=== PATIENT | female | born 1970 | race Caucasian/White ===

== ENCOUNTER 2016-06-19 18:59 | Emergency (ER) | payer BC ==
[~2016-06-19] VITALS: Ht 165.1 cm; Wt 109.1 kg
[~2016-06-19 18:59] MED LIST: BIOTCAP2 PO; ERGO1CAP35 PO; LEVO88TA3 PO; MERCAPTOPURINE PO; PRLSR20 PO; VEDO1INJ INJ; ZNTT/150 PO
[2016-06-19 19:41] VITALS: TEMP 36.8; Ht 165.1 cm; Wt 109.1 kg
[2016-06-19] MEDS ORDERED: SODIUM CHLORIDE 0.9% 1000ML 1,000 ML IV STA (20:14)
--- NOTE | 2016-06-19 20:31 | EMERGENCY ROOM VISIT NOTE ---
History Report prepared by Isabella: Stevie Mcdonald Under the Supervision of: Dr. Oskar Ye M.D. First contact with patient: 20:02 Chief Complaint: OTHER COMPLAINT Stated Complaint: LIGHT HEADED SINCE 730 THIS MORNING History of Present Illness The patient is a 46 year old female who presents to the Emergency Room with complaints of persistent lightheadedness beginning thirteen and a half hours prior to arrival. She states she woke up this morning, and when she got out of bed that she began walking sideways. The patient notes she sat back down for a few minutes but it did not subside. She states her symptoms are worse with movement. The patient notes she was seen by [facility], who referred the patient to the ED because her right eye was not "circular". She states she was diagnosed with iritis in her left eye a year ago, in which, she just finished eye drops a week and a half ago. She notes she has experienced a relapse of her ulcerative colitis that began 2-3 weeks ago. The patient also complains of mild pressure in her jaw, but she states she has not seen a dentist in five years and her childhood fillings are falling out. She notes she had vertigo a few years ago, but today's lightheadedness is not as severe. The patient states she has experienced increased frequency urinating due to coming out of remission for her ulcerative colitis. She notes she has experienced minimal blood in her stool that is related to internal hemorrhoids from ulcerative colitis. 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 Review of Systems See HPI for pertinent positives & negatives. A total of 10 systems reviewed and were otherwise negative. Past Medical & Surgical Medical Problems: (1) Hypothyroidism (2) Irritable bowel (3) Ulcerative colitis (4) Uterine cancer Surgical Problems: (1) H/O: hysterectomy Family History Cancer Diabetes mellitus FHx: lung disease Hypertension Social History Smoking Status: Never Smoker Marital Status: Housing Status: lives with family Current/Historical Medications Scheduled Biotin (Biotin 5000), 1 CAP PO DAILY Ergocalciferol (Vitamin D Cap), 50,000 INTER.UNIT PO WK Levothyroxine Sodium (Levothyroxine Sodium), 1 TAB PO DAILY Omeprazole (Prilosec), 20 MG PO BID Ranitidine (Zantac), 1 TAB PO BID Vedolizumab (Entyvio), 1 DOSE INJ [id number] [Mecatopurine], 100 MG PO DAILY Scheduled PRN Meclizine HCl (Meclizine HCl), 1 TAB PO Q6H PRN for Dizziness or Vertigo Allergies Coded Allergies: Adalimumab (Verified Allergy, Severe, LUPUS, 07/12/15) Clavulanic Acid (Verified Allergy, Severe, TONGUE SWELLS, 03/26/09) Penicillins (Verified Allergy, Severe, TONGUE SWELLS, 03/26/09) Prednisone (Verified Allergy, Severe, HAIR FALLS OUT, 07/12/15) Uncoded Allergies: BETALACTAMASEIN (Allergy, Severe, TONGUE SWELLS, 03/26/09) Physical Exam Vital Signs Date Time Temp Pulse Resp B/P Pulse Ox O2 Delivery O2 Flow Rate FiO2 06/19/16 23:15 54 18 130/75 100 Room Air 06/19/16 20:55 67 06/19/16 20:45 58 18 129/82 96 06/19/16 19:41 36.8 74 18 147/94 98 Room Air Physical Exam GENERAL: Patient is in no acute distress. HEENT: Right pupil is slightly irregular in shape compared to the left but reacts normally. No acute trauma, normocephalic atraumatic, mucous membranes moist, no nasal congestion, no scleral icterus. NECK: No stridor, no adenopathy, no meningismus, trachea is midline. LUNGS: Clear to auscultation bilaterally, no wheeze, no rhonchi, breath sounds equal. HEART: Without murmurs gallops or rubs, regular rate and rhythm. ABDOMEN: Soft, nontender, bowel sounds positive, no hernias, no peritonitis. EXTREMITIES: No cyanosis or edema, full range of motion of all the joints without pain or difficulty, no signs for acute trauma. NEUROLOGIC: Oriented x 3, no acute motor or sensory deficits, no focal weakness. No speech slur or facial droop. No cerebellar dysfunction or pronator drift. SKIN: No rash, no jaundice, no diaphoresis. Medical Decision & Procedures ER Provider Diagnostic Interpretation: MRA and MRI results and stated below per my interpretation and radiologist interpretation. Other radiology results and stated below per my review and radiologist interpretation: MR ANGIOGRAM OF THE BRAIN CLINICAL HISTORY: Lightheadedness. COMPARISON STUDY: MRI of the brain performed concurrently on 06/19/2016. TECHNIQUE: 3-D [id number] MR angiography of the intracranial circulation is performed. 3-D tumble views are created and assessed. IV contrast was not administered for this examination. FINDINGS: The [place] is developmentally complete. The internal carotid arteries are widely patent bilaterally, as are the anterior and middle cerebral arteries. The vertebrobasilar system and posterior cerebral arteries are widely patent. The right vertebral artery is dominant. There is no aneurysm, high-grade stenosis, or focal vessel cutoff seen throughout the intracranial circulation. The brain parenchyma is normal as visualized. IMPRESSION: Unremarkable MR angiogram of the brain. Electronically signed by: Oskar Edward M.D. 06/19/2016 11:00 PM MRI OF THE BRAIN COMBO CLINICAL HISTORY: Lightheadedness. Gait imbalance. COMPARISON STUDY: No priors. TECHNIQUE: MRI of the brain was performed utilizing various T1 and T2-weighted sequences in the axial, sagittal, and coronal planes. Contrast-enhanced sequences were acquired following the administration of 10 cc of Gadavist. FINDINGS: Brain parenchyma: The brain parenchyma is normal in appearance. There is no hemorrhage or mass effect. There is no restricted diffusion to suggest acute ischemia. No enhancing mass lesion is identified on the postcontrast images. [place]-white matter differentiation is preserved. No extra-axial fluid collection is seen. The cerebellar tonsils are normal in configuration. Ventricles, sulci, and cisterns: Normal in configuration. Pituitary and sella: Unremarkable. Intracranial vasculature: Normal flow voids are maintained at the skull base. Orbits: The bony orbits are grossly intact. Orbital contents are normal in appearance. Sinuses and mastoids: Clear. Calvarium: Unremarkable. Cervical cord: Partially visualized cervical spinal cord is normal in morphology and signal intensity. IMPRESSION: No acute intracranial abnormality. Electronically signed by: Oskar Edward M.D. 06/19/2016 10:57 PM Laboratory Results 06/19/16 20:50 Red Blood Count 4.22, Mean Corpuscular Volume 88.2, Mean Corpuscular Hemoglobin 29.6, Mean Corpuscular Hemoglobin Concent 33.6, Mean Platelet Volume 9.0, Neutrophils (%) (Auto) 46.0, Lymphocytes (%) (Auto) 41.4, Monocytes (%) (Auto) 7.4, Eosinophils (%) (Auto) 4.7, Basophils (%) (Auto) 0.3, Neutrophils # (Auto) 2.86, Lymphocytes # (Auto) 2.57, Monocytes # (Auto) 0.46, Eosinophils # (Auto) 0.29, Basophils # (Auto) 0.02 06/19/16 20:50 Test 06/19/16 20:50 White Blood Count 6.21 K/uL (4.8-10.8) Red Blood Count 4.22 M/uL (4.2-5.4) Hemoglobin 12.5 g/dL (12.0-16.0) Hematocrit 37.2 % (37-47) Mean Corpuscular Volume 88.2 fL (80-100) Mean Corpuscular Hemoglobin 29.6 pg (25-34) Mean Corpuscular Hemoglobin Concent 33.6 g/dl (32-36) Platelet Count 291 K/uL (130-400) Mean Platelet Volume 9.0 fL (7.4-10.4) Neutrophils (%) (Auto) 46.0 % Lymphocytes (%) (Auto) 41.4 % Monocytes (%) (Auto) 7.4 % Eosinophils (%) (Auto) 4.7 % Basophils (%) (Auto) 0.3 % Neutrophils # (Auto) 2.86 K/uL (1.4-6.5) Lymphocytes # (Auto) 2.57 K/uL (1.2-3.4) Monocytes # (Auto) 0.46 K/uL (0.11-0.59) Eosinophils # (Auto) 0.29 K/uL (0-0.5) Basophils # (Auto) 0.02 K/uL (0-0.2) RDW Standard Deviation 43.8 fL (36.4-46.3) RDW Coefficient of Variation 13.6 % (11.5-14.5) Immature Granulocyte % (Auto) 0.2 % Immature Granulocyte # (Auto) 0.01 K/uL (0.00-0.02) Urine Color YELLOW Urine Appearance CLEAR (CLEAR) Urine pH 6.5 (4.5-7.5) Urine Specific [place]aid 1.024 (1.000-1.030) Urine Protein NEG (NEG) Urine Glucose (UA) NEG (NEG) Urine Ketones NEG (NEG) Urine Occult Blood NEG (NEG) Urine Nitrite NEG (NEG) Urine Bilirubin NEG (NEG) Urine Urobilinogen NEG (NEG) Urine Leukocyte Esterase TRACE (NEG) Urine WBC (Auto) 1-5 /hpf (0-5) Urine RBC (Auto) 0-4 /hpf (0-4) Urine Hyaline Casts (Auto) 1-5 /lpf (0-5) Urine Epithelial Cells (Auto) 10-20 /lpf (0-5) Urine Bacteria (Auto) NEG (NEG) Anion Gap 9.0 mmol/L (3-11) Est Creatinine Clear Calc Drug Dose 111.7 ml/min Estimated GFR () 105.5 Estimated GFR (Non- 91.0 BUN/Creatinine Ratio 20.9 (10-20) Calcium Level 8.8 mg/dl (8.5-10.1) Total Bilirubin 0.3 mg/dl (0.2-1) Aspartate Amino Transf (AST/SGOT) 17 U/L (15-37) Alanine Aminotransferase (ALT/SGPT) 20 U/L (12-78) Alkaline Phosphatase 107 U/L (45-117) Total Protein 7.1 gm/dl (6.4-8.2) Albumin 3.8 gm/dl (3.4-5.0) Globulin 3.3 gm/dl (2.5-4.0) Albumin/Globulin Ratio 1.2 (0.9-2) Thyroid Stimulating Hormone (TSH) 1.350 uIu/ml (0.300-4.500) Free Thyroxine 1.36 ng/dl (0.80-1.60) Laboratory results reviewed by me. Medications Administered Medications (Trade) Dose Ordered Sig/Sharonda Route Start Time Stop Time Status Last Admin Dose Admin Sodium Chloride (Nss 1000ml) 1,000 ml @ 999 mls/hr Q1H1M STAT IV 06/19/16 20:14 06/19/16 21:14 DC 06/19/16 21:05 999 MLS/HR Loperamide HCl (Imodium Cap) 4 mg NOW STAT PO 06/19/16 20:50 06/19/16 20:52 DC 06/19/16 21:04 4 MG ECG Indication: other (lightheadedness) Rate (beats per minute): 58 Rhythm: sinus bradycardia Findings: no acute ischemic change, no ectopy ED Course 2006: The patient was evaluated in room A12B. A complete history and physical exam was performed. 2013: Ordered Sodium Chloride 1,000 ml @ 999 mls/hr IV. 2049: Ordered Imodium Cap 4 mg PO. 2299: Ordered Gadavist 10 mmol IV. 2317: Reevaluated the patient. Discussed results and discharge instructions: She verbalized understanding and agreement. The patient is ready for discharge. 2344: Ordered Meclizine HCl 1 homepack PO. Medical Decision The differential diagnoses include but are not limited to: vertigo, stroke, aneurysm, intracranial mass, electrolyte imbalance, anemia, UTI, medication reaction, thyroid disorder. There is no leukocytosis or concerning anemia. No significant electrolyte abnormality, kidney failure or hepatitis. The patient appears to be in a euthyroid state. EKG shows a sinus rhythm, no acute ischemia. Brain MRI does not show mass or strokelike lesion. Brain MRA does not show evidence for aneurysm. Urinalysis does not show infection. On exam, there were no focal neurologic deficits. The patient presents for the possibility of mass or aneurysm. This concern was brought forward at urgent care. Workup here suggests no emergent findings. The patient does, I suspect, likely have vertigo. She was reassured. She is being discharged home. During her ER stay, she was given IV saline, she received oral Imodium for diarrhea. She was given a meclizine tablet home pack. Impression Primary Impression: Dizziness Scribe Attestation The scribe's documentation has been prepared under my direction and personally reviewed by me in its entirety. I confirm that the note above accurately reflects all work, treatment, procedures, and medical decision making performed by me. Departure Information Dispostion Home / Self-Care Prescriptions Meclizine HCl (Meclizine HCl) 25 Mg Tab 1 TAB PO Q6H Y for Dizziness or Vertigo, #15 TAB Prov: Oskar Ye M.D. 06/19/16 Referrals Merlene Gray M.D. (PCP) Forms HOME CARE DOCUMENTATION FORM, IMPORTANT VISIT INFORMATION Patient Instructions My [facility] Additional Instructions meclizine 1 tab every 6 hours for vertigo as needed stay well hydrated return for worsening symptoms lab testing and MRI testing was all ok as we discussed
[2016-06-19] MEDS ORDERED: LOPERAMIDE HCL 2 MG CAP PO STA (20:50)
[2016-06-19 21:05] LABS: BASO % 0.3 %; BASO ABS # 0.02 K/uL (0-0.2); COMPLETE YES; EOS % 4.7 %; HEMATOCRIT 37.2 % (37-47); IG% 0.2 %; LYMPH % 41.4 %; LYMPH ABS # 2.57 K/uL (1.2-3.4); MEAN CELL VOLUME 88.2 fL (80-100); MEAN CORPUSCULAR HEMOGLOBIN 29.6 pg (25-34); MEAN CORPUSCULAR HGB CONC 33.6 g/dl (32-36); MONO % 7.4 %; PLATELET COUNT 291 K/uL (130-400); RED BLOOD COUNT 4.22 M/uL (4.2-5.4); WHITE BLOOD COUNT 6.21 K/uL (4.8-10.8)
[2016-06-19 21:08] LABS: MANUAL MICROSCOPIC REQUIRED? NO; REVIEW REQ? NO; URINE APPEARANCE CLEAR (CLEAR); URINE BILIRUBIN NEG (NEG); URINE COLOR YELLOW; URINE NITRITE NEG (NEG); URINE PH 6.5 (4.5-7.5); URINE SPECIFIC GRAVITY 1.024 (1.000-1.030); UROBILINOGEN NEG (NEG); ZZUR CULT IF INDIC CLEAN CATCH NO
[2016-06-19 22:22] LABS: CALCIUM 8.8 mg/dl (8.5-10.1)
[2016-06-19 22:25] LABS: BUN/CREATININE RATIO 20.9 (10-20); CREATININE 0.79 mg/dl (0.60-1.20)
[2016-06-19 22:35] LABS: ALB/GLOB RATIO 1.2 (0.9-2); THYROID STIMULATING HORMONE 1.35 uIu/ml (0.300-4.500)
--- NOTE | 2016-06-19 22:58 | DIAGNOSTIC IMAGING REPORT ---
MRI OF THE BRAIN COMBO CLINICAL HISTORY: Lightheadedness. Gait imbalance. COMPARISON STUDY: No priors. TECHNIQUE: MRI of the brain was performed utilizing various T1 and T2-weighted sequences in the axial, sagittal, and coronal planes. Contrast-enhanced sequences were acquired following the administration of 10 cc of Gadavist. FINDINGS: Brain parenchyma: The brain parenchyma is normal in appearance. There is no hemorrhage or mass effect. There is no restricted diffusion to suggest acute ischemia. No enhancing mass lesion is identified on the postcontrast images. [place]-white matter differentiation is preserved. No extra-axial fluid collection is seen. The cerebellar tonsils are normal in configuration. Ventricles, sulci, and cisterns: Normal in configuration. Pituitary and sella: Unremarkable. Intracranial vasculature: Normal flow voids are maintained at the skull base. Orbits: The bony orbits are grossly intact. Orbital contents are normal in appearance. Sinuses and mastoids: Clear. Calvarium: Unremarkable. Cervical cord: Partially visualized cervical spinal cord is normal in morphology and signal intensity. IMPRESSION: No acute intracranial abnormality. Electronically signed by: Oskar Edward M.D. 06/19/2016 10:57 PM Dictated Date/Time: 06/19/2016 10:54 PM
[2016-06-19] MEDS ORDERED: GADAVIST IV PRN (23:00)
--- NOTE | 2016-06-19 23:02 | DIAGNOSTIC IMAGING REPORT ---
MR ANGIOGRAM OF THE BRAIN CLINICAL HISTORY: Lightheadedness. COMPARISON STUDY: MRI of the brain performed concurrently on 06/19/2016. TECHNIQUE: 3-D [id number] MR angiography of the intracranial circulation is performed. 3-D tumble views are created and assessed. IV contrast was not administered for this examination. FINDINGS: The [place] is developmentally complete. The internal carotid arteries are widely patent bilaterally, as are the anterior and middle cerebral arteries. The vertebrobasilar system and posterior cerebral arteries are widely patent. The right vertebral artery is dominant. There is no aneurysm, high-grade stenosis, or focal vessel cutoff seen throughout the intracranial circulation. The brain parenchyma is normal as visualized. IMPRESSION: Unremarkable MR angiogram of the brain. Electronically signed by: Oskar Edward M.D. 06/19/2016 11:00 PM Dictated Date/Time: 06/19/2016 10:58 PM
[2016-06-19 23:15] VITALS: BP 130/75; PULSE 54; O2SAT 100
[2016-06-19] MEDS ORDERED: ANT25 PO (23:35)
[2016-06-19] MEDS ORDERED: MECLIZINE HCL 25MG HOME PACK PO ONE (23:45)
== END 2016-06-19 23:47 | disposition home or self-care (01) ==
LOC: C.EDB 18:59 → C.EDA 23:47
DX: R42 Dizziness and giddiness (principal); R00.1 Bradycardia, unspecified; E03.9 Hypothyroidism, unspecified; K58.9 Irritable bowel syndrome, unspecified; Z87.19 Personal history of other diseases of the digestive system; Z90.710 Acquired absence of both cervix and uterus; Z79.899 Other long term (current) drug therapy; Z88.0 Allergy status to penicillin; Z88.8 Allergy status to other drugs, medicaments and biological substances; Z80.9 Family history of malignant neoplasm, unspecified; Z83.3 Family history of diabetes mellitus; Z82.49 Family history of ischemic heart disease and other diseases of the circulatory system

== ENCOUNTER → 2016-09-28 | Outpatient (CLI) | payer BC ==
[~2016-09-28] MED LIST changes: +ANT25 PO
--- NOTE | 2016-09-28 17:24 | DIAGNOSTIC IMAGING REPORT ---
ULTRASOUND LEFT VENOUS DOPP LOWER EXT UNILAT CLINICAL HISTORY: Left leg pain and swelling COMPARISON STUDY: No previous studies for comparison. FINDINGS: Real-time and color flow Doppler imaging were performed. Flow was seen within the femoral, popliteal and calf veins with no intraluminal thrombus demonstrated. The saphenous vein is patent. IMPRESSION: No evidence of left lower extremity DVT. Electronically signed by: Inocente Abernathy M.D. 09/28/2016 5:22 PM Dictated Date/Time: 09/28/2016 5:22 PM
== END | disposition home or self-care (01) ==
LOC: C.ULTR 16:51
PROVIDERS: ATTEND Nurse Practitioner
DX: M79.662 Pain in left lower leg (principal)

== ENCOUNTER 2019-01-04 17:10 | Inpatient (IN) ==
[2019-01-04] MEDS ORDERED: GI COCKTAIL ED USE PO ONE (18:11)
[2019-01-04] MEDS ORDERED: FAMOTIDINE 20 MG TAB PO ONE (18:11)
--- NOTE | 2019-01-04 18:29 | XRay Report ---
XR chest 1V portable HISTORY: 48 years-old Female Chest Pain acute atypical chest pain COMPARISON: None available TECHNIQUE: Portable AP view of the chest FINDINGS: Cardiomediastinal and hilar silhouettes are within normal limits. No pneumothorax, pleural effusion, focal airspace consolidation or overt pulmonary edema. Degenerative changes of the shoulders and spin e. IMPRESSION: No acute process. The above report was generated using voice recognition software. It may contain grammatical, syntax o r spelling errors. Electronically signed by: Rob Odell M.D. 01/04/2019 6:28 PM
[2019-01-04 18:44] LABS: Basophils # (auto) 0.04 K/uL (0-0.2); Basophils % (auto) 0.5 %; Eosinophils # (auto) 0.15 K/uL (0-0.5); Eosinophils % (auto) 1.8 %; Hematocrit (blood only) 41.5 % (37-47); Hemoglobin 13.6 g/dL (12.0-16.0); Immature Granulocytes # (auto) 0.01 K/uL (0.00-0.02); Immature Granulocytes % (auto) 0.1 %; Lymphocytes # (auto) 3.15 K/uL (1.2-3.4); Lymphocytes % (auto) 36.8 %; Mean Corpuscular Hemoglobin 27.9 pg (25-34); Mean Corpuscular Hgb Conc 32.8 g/dL (32-36); Mean Platelet Volume 9.8 fL (7.4-10.4); Neutrophils % (auto) 53.8 %; Platelet Count 275 K/uL (130-400); RDW Coefficient of Variation 14.1 % (11.5-14.5); RDW Standard Deviation 43.6 fL (36.4-46.3); Red Blood Count 4.88 M/uL (4.2-5.4); White Blood Count 8.55 K/uL (4.8-10.8)
[2019-01-04 18:56] LABS: iSTAT Creatinine 1.1 mg/dl (0.6-1.3); iSTAT Hemoglobin 13.9 g/dl (12.0-16.0); iSTAT Ionized Calcium 1.21 mmol/l (1.12-1.32); iSTAT Potassium 3.7 mEq/L (3.3-5.0)
[2019-01-04 18:59] LABS: Alanine Aminotransferase 35 U/L (12-78); Albumin Level 3.8 gm/dl (3.4-5.0); Aspartate Aminotransferase 19 U/L (15-37); BUN Creatinine Ratio 14.4 (10-20); Blood Urea Nitrogen 15 mg/dl (7-18); Carbon Dioxide 27 mmol/L (21-32); Chloride 107 mmol/L (98-107); Creatinine Clr Calc Pharmacy 91.2 ml/min; Est GFR (African American) 73.8; Est GFR (Non-African American) 63.6; Glucose 84 mg/dl (70-99); Lipase 121 U/L (73-393); Potassium 3.8 mmol/L (3.5-5.1); Sodium 140 mmol/L (136-145)
[2019-01-04 19:04] LABS: Alkaline Phosphatase 89 U/L (45-117); Bilirubin,Total 0.2 mg/dl (0.2-1); Creatine Kinase 181 U/L (26-192); Creatine Kinase MB 1.5 ng/ml (0.5-3.6); Globulin 3.9 gm/dl (2.5-4.0); Total Protein 7.7 gm/dl (6.4-8.2); Troponin I < 0.015 ng/ml (0-0.045)
[2019-01-04] MEDS ORDERED: ASPIRIN CHEW 324 MG PO STA (19:31)
[2019-01-04] MEDS ORDERED: NITROGLYCERIN SL 0.4 MG/TAB TAB SL PRN (19:31)
[2019-01-04 19:40] LABS: Appearance Urine Slightly Cloudy (Clear); Bilirubin Urine Negative (Negative); Blood Urine Trace (Negative); Color Urine Yellow; Glucose Urine UA Negative (Negative); Ketones Urine Negative (Negative); Leukocyte Esterase Urine Trace (Negative); Nitrite Urine Negative (Negative); Protein Urine Trace (Negative); Specific Gravity Urine >= 1.030 (1.000-1.030); Urobilinogen Urine Negative (Negative); pH Urine 5.5 (4.5-7.5)
[2019-01-04] MEDS ORDERED: OPTIRAY 320 125ml IV PRN (19:41)
[2019-01-04 20:01] LABS: Epithelial Cell Urine 20-30 /lpf (0-5)
[2019-01-04 20:02] LABS: Bacteria Urine Negative (Negative); Calcium Oxalate Crystals Urine Present (None Prsent); Mucus Urine Present (None Prsent); WBC Urine >30 /hpf (0-5)
--- NOTE | 2019-01-04 20:21 | CT Scan Report ---
CT angio chest PE protocol CT DOSE: 965.47 mGy.cm HISTORY: 48 years-old Female with PE. Acute chest pain TECHNIQUE: Multiple CTA images of the chest were obtained after the intravenous administration of 119 ml Optiray 320. Coronal and sagittal MIPS were obtained from the axial data set and were submitted for review. All measurements were obtained according to NASCET criteria. A dose lowering technique w as utilized adhering to the principles of ALARA. COMPARISON: Chest radiograph of same day. FINDINGS: CTA: Heart is normal in size. No pericardial effusion. There is no thoracic aortic aneurysm or dissection. Patency of the imaged great vessels. The pulmonary arterial tree is opacified to level the proximal subsegmental branches and demonstrates no focal filling defects to suggest pulmonary thromboembolic d isease. CT CHEST: Unremarkable thyroid. Opacified collateral veins of the anterior mediastinum with suggestion of right subclavian venous stenosis at the level of the thoracic inlet as the vein crosses over the right fir st rib. There is no adenopathy by CT size criteria. No pneumothorax or pleural effusion. Minimal depe ndent bibasilar atelectasis. There are no suspicious pulmonary nodules or masses. No overt pulmonary edema or focal airspace consolidation to suggest pneumonia. Central airways appear patent. There is a subcentimeter tracheocele within the right tracheoesophageal recess on image 261 series 4 at the lev el of T1. No acute process of the imaged upper abdomen. Hepatic steatosis. Soft tissues and breast parenchyma a ppear unremarkable. Bones appear intact. No acute fracture. IMPRESSION: 1. No acute intrathoracic abnormality, specifically there is no evidence of pulmonary thromboembolic disease. 2. Hepatic steatosis. The above report was generated using voice recognition software. It may contain grammatical, syntax o r spelling errors. Electronically signed by: Rob Odell M.D. 01/04/2019 8:20 PM
[2019-01-04] MEDS ORDERED: cefTRIAXone SODIUM 2,000 MG/70 ML BAG IV STA (20:49)
--- NOTE | 2019-01-04 22:47 | History & Physical Report ---
Date of Service January 04, 2019 Assessment & Plan (1) Epigastric burning sensation: Epigastric burning sensation for the past 2 weeks/history of GERD/ulcerative colitis- Patient has been on pantoprazole 40 mg p.o. twice daily for extended interval time, and had the recent addition of Carafate 1 g 4 times daily. She reports no significant improvement with the addition of Carafate. The symptoms are different than her usual reflux type symptoms. Suspect that her symptoms may be brought on by adverse effect of hydroxychloroquine. We will hold hydroxychloroquine for now, and follow symptoms. Patient does have enough risk factors for vascular disease that she will be admitted to telemetry unit for chest pain rule out. She will be n.p.o. except essential medications. Present on Admission?: Yes (2) GERD (gastroesophageal reflux disease): See above Present on Admission?: Yes (3) Ulcerative colitis: See above Present on Admission?: Yes (4) Hypothyroidism: Continue levothyroxine sodium 80 mcg p.o. every morning Present on Admission?: Yes History of Present Illness Chief Complaint: The patient presents to the emergency department with worsening epigastric burning sensation over the past 2 weeks. Primary Care Provider: Merlene Gray MD The patient is a 48-year-old female with a past medical history including arthritis, hypothyroidism, GERD, and gastritis who presents to the emergency department with worsening epigastric burning for the past 2 weeks. She recently had addition of sucralfate 4 times daily to her usual pantoprazole 40 mg twice daily, and reports no significant improvement. She denies any recent change in dietary intake for either solids or liquids. She denies any recent travels or sick exposures. Made medication changes, upon review of her list, are as noted above the addition of Carafate, and she was also started on hydroxychloroquine about 4 months ago. Allergies Allergy/AdvReac Type Severity Reaction Status Date / Time clavulanic acid Allergy Severe TONGUE Verified 01/04/19 20:33 SWELLS Penicillins Allergy Severe TONGUE Verified 01/04/19 20:33 SWELLS prednisone Allergy Severe HAIR FALLS Verified 01/04/19 20:33 OUT infliximab [From Remicade] Allergy Intermediate Hives Verified 01/04/19 20:33 adalimumab AdvReac Severe Drug Verified 01/04/19 20:33 induced Lupus mercaptopurine AdvReac Unknown Elevated Verified 01/04/19 20:33 liver enzymes methotrexate AdvReac Unknown Elevated Verified 01/04/19 20:33 liver enzymes vedolizumab [From Entyvio] AdvReac Unknown Drug Verified 01/04/19 20:33 induced Lupus BETALACTAMASEIN Allergy Severe TONGUE Uncoded 01/04/19 20:33 SWELLS Home Medications Home Medications Medication Instructions Recorded Confirmed Type coconut oil 2,000 mg PO QAM 01/04/19 01/04/19 History difluprednate [Durezol] 1 drp OPB Q2D 01/04/19 01/04/19 History hydroxychloroquine 200 mg PO BID 01/04/19 01/04/19 History levothyroxine 88 mcg PO QAM 01/04/19 01/04/19 History pantoprazole 40 mg PO BID 01/04/19 01/04/19 History sucralfate 1 g PO ACHS 01/04/19 01/04/19 History turmeric-turmeric ext-pepper 500 mg PO DAILY 01/04/19 01/04/19 History Past Med/Surg History Medical History (Updated 01/05/19 @ 01:14 by Tavon Quiñones MD) GERD (gastroesophageal reflux disease) Hypothyroidism (Chronic) Irritable bowel (Chronic) Ulcerative colitis (Chronic) Uterine cancer (Resolved) Surgical History (Updated 01/04/19 @ 18:22 by Eboni Moses) H/O: hysterectomy (Chronic) History of cholecystectomy Social History Preferred Language: Sami Communication Ability: Effective Beliefs That Will Affect Care: None Current Living Situation: Alone Other Information That Helps Us Care for You: No Feels Safe at Home: Yes Safety Concerns: Feels Safe At This Time Smoking Status: Former smoker Do You Dip or Chew Tobacco: No ; Second Hand Exposure: No ; Tobacco Cessation Education Requested by Patient: No Hx Alcohol Use: No Hx Substance Use: No Review of Systems Review of Systems: The patient denies chest pain, palpitations, shortness of breath, dyspnea on exertion, cough, lower extremity swelling, sore throat, fevers, chills, sweats, vomiting, diarrhea , constipation, pelvic pain, blood in urine or stool, dysuria, urinary frequency or urgency, lightheadedness, dizziness, headache, memory loss, loss of consciousness, rash, abnormal bruising or bleeding, imbalance, focal or generalized weakness, numbness or tingling in arms or legs, back or neck pain, or night sweats. The review of systems is otherwise negative other than for that already noted above, and at least 10 systems have been reviewed. Physical Exam Physical Exam: The patient is awake, alert and oriented 3, well developed and well nourished, normocephalic and atraumatic, lying in bed and in no acute distress. HEENT--PERRL, EOMI, mucous membranes and oropharynx dry. Neck--supple. No JVD. No bruits. Thyroid normal, trachea midline, no adenopathy. Heart--normal S1 and S2. No murmurs, rubs or gallops. Lungs--clear bilaterally, no respiratory distress, no accessory muscle use. Abdomen--normal bowel sounds and soft. Tender in epigastrium. Extremities--no cyanosis or clubbing. No edema. Dermatologic--normal skin turgor, normal color, no abnormal lymph nodes, no rash. Neurologic--cranial nerves II through XII grossly intact. Rheumatologic--normal range of motion. Psychiatric--normal affect. Results & Data Vital Signs (Past 12 Hours) Vital Signs Temp Pulse Resp BP Pulse Ox 01/04/19 22:31 98 01/04/19 22:01 69 18 96 01/04/19 22:00 68 14 124/83 93 01/04/19 21:31 68 16 96 01/04/19 21:30 68 16 133/88 01/04/19 21:00 68 14 114/71 96 01/04/19 20:30 83 17 135/90 01/04/19 20:18 71 19 130/88 99 01/04/19 19:30 83 15 159/111 H 98 01/04/19 19:28 76 21 130/87 100 01/04/19 19:00 71 16 98 01/04/19 18:37 68 17 112/85 96 01/04/19 17:21 97.9 F 71 17 137/70 98 Laboratory Results Laboratory Results WBC 8.55 K/uL (4.8-10.8) 01/04/19 18:26 RBC 4.88 M/uL (4.2-5.4) 01/04/19 18:26 Hgb 13.6 g/dL (12.0-16.0) 01/04/19 18: POC Hgb 13.9 g/dl (12.0-16.0) 01/04/19 18:43 Hct 41.5 % (37-47) 01/04/19 18: POC Hct 41 % (37-47) 01/04/19 18:43 MCV 85.0 fL (80-100) 01/04/19 18: MCH 27.9 pg (25-34) 01/04/19 18: MCHC 32.8 g/dL (32-36) 01/04/19 18: RDW Std Deviation 43.6 fL (36.4-46.3) 01/04/19 18: RDW Coeff of Barber 14.1 % (11.5-14.5) 01/04/19 18: Plt Count 275 K/uL (130-400) 01/04/19 18: MPV 9.8 fL (7.4-10.4) 01/04/19 18: Immature Gran % (Auto) 0.1 % 01/04/19 18: Neut % (Auto) 53.8 % 01/04/19 18: Lymph % (Auto) 36.8 % 01/04/19 18: [place] % (Auto) 7.0 % 01/04/19 18: Eos % (Auto) 1.8 % 01/04/19 18: Baso % (Auto) 0.5 % 01/04/19 18: Immature Gran # (Auto) 0.01 K/uL (0.00-0.02) 01/04/19 18: Neut # (Auto) 4.60 K/uL (1.4-6.5) 01/04/19 18: Lymph # (Auto) 3.15 K/uL (1.2-3.4) 01/04/19 18: [place] # (Auto) 0.60 K/uL (0.11-0.59) H 01/04/19 18: Eos # (Auto) 0.15 K/uL (0-0.5) 01/04/19 18: Baso # (Auto) 0.04 K/uL (0-0.2) 01/04/19 18:26 POC D-Dimer > 450 ng/mlFEU (0-450) H* 01/04/19 18:42 POC Sodium 140 mEq/L (135-144) 01/04/19 18:43 Sodium 140 mmol/L (136-145) 01/04/19 18:26 POC Potassium 3.7 mEq/L (3.3-5.0) 01/04/19 18:43 Potassium 3.8 mmol/L (3.5-5.1) 01/04/19 18:26 POC Chloride 105 mEq/L (101-112) 01/04/19 18:43 Chloride 107 mmol/L (98-107) 01/04/19 18:26 Carbon Dioxide 27 mmol/L (21-32) 01/04/19 18:26 POC Total CO2 27 mEq/l (24-31) 01/04/19 18:43 Anion Gap 6.0 (3-11) 01/04/19 18:26 POC Anion Gap 13.0 mmol/L (16-25) L 01/04/19 18:43 POC BUN 15 mg/dl (7-18) 01/04/19 18:43 BUN 15 mg/dl (7-18) 01/04/19 18:26 Creatinine 1.05 mg/dl (0.6-1.2) 01/04/19 18:26 POC Creatinine 1.1 mg/dl (0.6-1.3) 01/04/19 18:43 Est Cr Clr Drug Dosing 91.2 ml/min 01/04/19 18:26 Est GFR ( Amer) 73.8 01/04/19 18:26 Est GFR (Non-Af Amer) 63.6 01/04/19 18:26 BUN/Creatinine Ratio 14.4 (10-20) 01/04/19 18:26 Glucose 84 mg/dl (70-99) 01/04/19 18:26 POC Glucose (other) 83 mg/dl (70-99) 01/04/19 18:43 Calcium 9.0 mg/dl (8.5-10.1) 01/04/19 18:26 POC Ioniz Calcium [place] 1.21 mmol/l (1.12-1.32) 01/04/19 18:43 Total Bilirubin 0.2 mg/dl (0.2-1) 01/04/19 18:26 AST 19 U/L (15-37) 01/04/19 18:26 ALT 35 U/L (12-78) 01/04/19 18:26 Alkaline Phosphatase 89 U/L (45-117) 01/04/19 18:26 Total Creatine Kinase 181 U/L (26-192) 01/04/19 18:26 CK-MB (CK-2) 1.5 ng/ml (0.5-3.6) 01/04/19 18: CK/CKMB % Calc 0.8 (0-3.0) 01/04/19 18: Troponin I < 0.015 ng/ml (0-0.045) 01/04/19 23:37 Total Protein 7.7 gm/dl (6.4-8.2) 01/04/19 18: Albumin 3.8 gm/dl (3.4-5.0) 01/04/19 18: Globulin 3.9 gm/dl (2.5-4.0) 01/04/19 18: Albumin/Globulin Ratio 1.0 (0.9-2) 01/04/19 18: Lipase 121 U/L (73-393) 01/04/19 18:26 Urine Color Yellow 01/04/19 18: Urine Appearance Slightly Cloudy (Clear) 01/04/19 18:26 Urine pH 5.5 (4.5-7.5) 01/04/19 18:26 Ur Specific [place] >= 1.030 (1.000-1.030) 01/04/19 18:26 Urine Protein Trace (Negative) H 01/04/19 18:26 Urine Glucose (UA) Negative (Negative) 01/04/19 18: Urine Ketones Negative (Negative) 01/04/19 18:26 Urine Blood Trace (Negative) H 01/04/19 18: Urine Nitrite Negative (Negative) 01/04/19 18: Urine Bilirubin Negative (Negative) 01/04/19 18: Urine Urobilinogen Negative (Negative) 01/04/19 18:26 Ur Leukocyte Esterase Trace (Negative) H 01/04/19 18:26 Urine RBC 5-10 /hpf (0-4) H 01/04/19 18:26 Urine WBC >30 /hpf (0-5) H 01/04/19 18:26 Ur Epithelial Cells 20-30 /lpf (0-5) H 01/04/19 18:26 Urine Crystals Calcium Oxalate (None Prsent) A 01/04/19 18:26 Calcium Oxalate Crystal Present (None Prsent) A 01/04/19 18:26 Urine Bacteria Negative (Negative) 01/04/19 18:26 Urine Mucus Present (None Prsent) A 01/04/19 18:26 Diagnostic Findings [place], [place] [phone] XRay Report Patient: TAMI MCELROYAdmit Date: 01/04/19 MR#: [id number]: [address] Acct ID:[id number]: Date: 1970[facility] Zip: [place] [address] Age: 48Location: ED Sex: F Room/Bed: Att Phy:Diagnosis: CHEST BURNING, DIZZINESS Jennifer Phy: Merlene Gray MDService Date: 01/04/19 Fam Phy:Interpreting Phy: Awais Odell Admit Phy: Ordering Phy: Miguel Reyes MD cc: ~ XR chest 1V portable HISTORY: 48 years-old Female Chest Pain acute atypical chest pain COMPARISON: None available TECHNIQUE: Portable AP view of the chest FINDINGS: Cardiomediastinal and hilar silhouettes are within normal limits. No pneumothorax, pleural effusion, focal airspace consolidation or overt pulmonary edema. Degenerative changes of the shoulders and spine. IMPRESSION: No acute process. The above report was generated using voice recognition software. It may contain grammatical, syntax or spelling errors. Electronically signed by: Rob Odell M.D. 01/04/2019 6:28 PM Dictated: 01/04/191825 Transcribed: 01/04/191825 [place], [place] [phone] CT Scan Report Patient: TAMI MCELROYAdmit Date: 01/04/19 MR#: [id number]: [address] Acct ID:[id number]: Date: 1970[facility] Zip: [place] [address] Age: 48Location: ED Sex: F Room/Bed: Att Phy:Diagnosis: CHEST BURNING, DIZZINESS Jennifer Phy: Merlene Gray MDService Date: 01/04/19 Antwan Phy:Interpreting Phy: Awais Odell Admit Phy: Ordering Phy: Miguel Reyes MD cc: ~ CT angio chest PE protocol CT DOSE: 965.47 mGy.cm HISTORY: 48 years-old Female with PE. Acute chest pain TECHNIQUE: Multiple CTA images of the chest were obtained after the intravenous administration of 119 ml Optiray 320. Coronal and sagittal MIPS were obtained from the axial data set and were submitted for review. All measurements were obtained according to NASCET criteria. A dose lowering technique was utilized adhering to the principles of ALARA. COMPARISON: Chest radiograph of same day. FINDINGS: CTA: Heart is normal in size. No pericardial effusion. There is no thoracic aortic aneurysm or dissection. Patency of the imaged great vessels. The pulmonary arterial tree is opacified to level the proximal subsegmental branches and demonstrates no focal filling defects to suggest pulmonary thromboembolic disease. CT CHEST: Unremarkable thyroid. Opacified collateral veins of the anterior mediastinum with suggestion of right subclavian venous stenosis at the level of the thoracic inlet as the vein crosses over the right first rib. There is no adenopathy by CT size criteria. No pneumothorax or pleural effusion. Minimal dependent bibasilar atelectasis. There are no suspicious pulmonary nodules or masses. No overt pulmonary edema or focal airspace consolidation to suggest pneumonia. Central airways appear patent. There is a subcentimeter tracheocele within the right tracheoesophageal recess on image 261 series 4 at the level of T1. No acute process of the imaged upper abdomen. Hepatic steatosis. Soft tissues and breast parenchyma appear unremarkable. Bones appear intact. No acute fracture. IMPRESSION: 1. No acute intrathoracic abnormality, specifically there is no evidence of pulmonary thromboembolic disease. 2. Hepatic steatosis. The above report was generated using voice recognition software. It may contain grammatical, syntax or spelling errors. Electronically signed by: Rob Odell M.D. 01/04/2019 8:20 PM Dictated: 01/04/192012 Transcribed: 01/04/192012 Code Status & VTE Plan Code Status Full code VTE Prophylaxis Plan VTE Prophylaxis will be ordered: Yes PG Care Time/CCT Total # of Minutes Spent Total Time Spent with Patient: Total time spent is greater than 50% in coordination of care (as documented) at patient's floor/unit and/or counseling patient:
[2019-01-04] MEDS ORDERED: MAGNESIUM HYDROXIDE SUSP 30 ML UDC PO PRN (23:24)
[2019-01-04] MEDS ORDERED: ACETAMINOPHEN 325 MG TAB PO PRN (23:24)
[2019-01-04] MEDS ORDERED: ONDANSETRON INJ 2 MG/ML 2 ML VIAL IV PRN (23:24)
[2019-01-04] MEDS ORDERED: ALUMINUM/MAGNESIUM SUSP 30 ML UDC PO PRN (23:24)
[2019-01-05] MEDS: PANTOprazole 40 MG TAB PO SCH ×3 (00:19→20:05)
[2019-01-05] MEDS: NSS + 20MEQ KCL 20 MEQ/1,000 ML BAG IV SCH ×3 (00:19→20:05)
--- NOTE | 2019-01-05 01:13 | Emergency Department Note ---
Entered by Eboni Moses acting as a scribe for History of Present Illness General Chief complaint: Chest Pain Stated complaint: CHEST BURNING, DIZZINESS Time Seen by Provider: 01/04/19 18:03 History of Present Illness Provider complaint: chest discomfort Onset (ago): hour(s) 1 Location: chest Pain Consistency: + intermittent Maximum Pain Intensity: 0 Quality: + other (hot) Exacerbated By: + other (standing up) Associated symptoms: + other (lightheaded) The patient is a 48 year old female who presents to the ED with complaints of intermittent chest discomfort that started 1 hour ago. The patient states that she has been having a hot feeling across her chest and stomach that started a few weeks ago, but worsened today. The patient states that this feeling came on rapidly today while she was grocery shopping so she decided to come to the ED to make sure she was not having a heart attack. The patient states that this feeling is usually exacerbated by standing up. The patient notes that she has a lso been getting lightheaded. The patient notes that she has an appointment here in 2 days for a barium x-ray. Home Medications Home Medications Medication Instructions Recorded Confirmed Type coconut oil 2,000 mg PO QAM 01/04/19 01/04/19 History difluprednate [Durezol] 1 drp OPB Q2D 01/04/19 01/04/19 History hydroxychloroquine 200 mg PO BID 01/04/19 01/04/19 History levothyroxine 88 mcg PO QAM 01/04/19 01/04/19 History pantoprazole 40 mg PO BID 01/04/19 01/04/19 History sucralfate 1 g PO ACHS 01/04/19 01/04/19 History turmeric-turmeric ext-pepper 500 mg PO DAILY 01/04/19 01/04/19 History Allergies Allergy/AdvReac Type Severity Reaction Status Date / Time clavulanic acid Allergy Severe TONGUE Verified 01/04/19 20:33 SWELLS Penicillins Allergy Severe TONGUE Verified 01/04/19 20:33 SWELLS prednisone Allergy Severe HAIR FALLS Verified 01/04/19 20:33 OUT infliximab [From Remicade] Allergy Intermediate Hives Verified 01/04/19 20:33 adalimumab AdvReac Severe Drug Verified 01/04/19 20:33 induced Lupus mercaptopurine AdvReac Unknown Elevated Verified 01/04/19 20:33 liver enzymes methotrexate AdvReac Unknown Elevated Verified 01/04/19 20:33 liver enzymes vedolizumab [From Entyvio] AdvReac Unknown Drug Verified 01/04/19 20:33 induced Lupus BETALACTAMASEIN Allergy Severe TONGUE Uncoded 01/04/19 20:33 SWELLS Past Med/Surg History Medical History (Updated 01/05/19 @ 01:14 by Tavon Quiñones MD) GERD (gastroesophageal reflux disease) Hypothyroidism (Chronic) Irritable bowel (Chronic) Ulcerative colitis (Chronic) Uterine cancer (Resolved) Surgical History (Updated 01/04/19 @ 18:22 by Eboni Moses) H/O: hysterectomy (Chronic) History of cholecystectomy Social History Preferred Language: Turkmen Communication Ability: Effective Beliefs That Will Affect Care: None Current Living Situation: Alone Other Information That Helps Us Care for You: No Feels Safe at Home: Yes Safety Concerns: Feels Safe At This Time Smoking Status: Former smoker Do You Dip or Chew Tobacco: No ; Second Hand Exposure: No ; Tobacco Cessation Education Requested by Patient: No Hx Alcohol Use: No Hx Substance Use: No Review of Systems See HPI for pertinent positives & negatives. and A total of 10 systems reviewed and were otherwise negative Physical Exam Vital Signs Vital Signs - 24 hr 01/04/19 17:21 01/04/19 18:20 01/04/19 18:37 Temperature 36.6 C Temperature Source Oral Pulse Rate 71 68 Pulse Rate from SpO2 Sensor 69 Respiratory Rate 17 17 Respiratory Depth Normal Respiratory Pattern Regular Blood Pressure 137/70 112/85 Blood Pressure Mean 92 101 Blood Pressure Position Sitting Pulse Oximetry 98 96 Oxygen Delivery Method Room Air Room Air Sepsis Recent Fever Within 48 Hours No Sepsis New/Unexplained Change in Mental Status No Sepsis Action Taken by Nursing No Action Required 01/04/19 19:00 01/04/19 19:28 01/04/19 19:30 Temperature Temperature Source Pulse Rate 71 76 83 Pulse Rate from SpO2 Sensor 71 77 82 Respiratory Rate 16 21 15 Respiratory Depth Respiratory Pattern Blood Pressure 130/87 159/111 H Blood Pressure Mean 97 117 Blood Pressure Position Pulse Oximetry 98 100 98 Oxygen Delivery Method Sepsis Recent Fever Within 48 Hours Sepsis New/Unexplained Change in Mental Status Sepsis Action Taken by Nursing 01/04/19 20:18 01/04/19 20:30 01/04/19 21:00 Temperature Temperature Source Pulse Rate 71 83 68 Pulse Rate from SpO2 Sensor 71 68 Respiratory Rate 19 17 14 Respiratory Depth Respiratory Pattern Blood Pressure 130/88 135/90 114/71 Blood Pressure Mean 99 104 77 Blood Pressure Position Pulse Oximetry 99 96 Oxygen Delivery Method Sepsis Recent Fever Within 48 Hours Sepsis New/Unexplained Change in Mental Status Sepsis Action Taken by Nursing 01/04/19 21:30 01/04/19 21:31 01/04/19 22:00 Temperature Temperature Source Pulse Rate 68 68 68 Pulse Rate from SpO2 Sensor 69 69 Respiratory Rate 16 16 14 Respiratory Depth Respiratory Pattern Blood Pressure 133/88 124/83 Blood Pressure Mean 103 100 Blood Pressure Position Pulse Oximetry 96 93 Oxygen Delivery Method Sepsis Recent Fever Within 48 Hours Sepsis New/Unexplained Change in Mental Status Sepsis Action Taken by Nursing 01/04/19 22:01 01/04/19 22:31 Temperature Temperature Source Pulse Rate 69 Pulse Rate from SpO2 Sensor 69 75 Respiratory Rate 18 Respiratory Depth Respiratory Pattern Blood Pressure Blood Pressure Mean Blood Pressure Position Pulse Oximetry 96 98 Oxygen Delivery Method Sepsis Recent Fever Within 48 Hours Sepsis New/Unexplained Change in Mental Status Sepsis Action Taken by Nursing GENERAL: Awake, alert, well-appearing, in no acute distress HENT: Normocephalic, atraumatic. Oropharynx unremarkable. EYES: Normal conjunctiva. Sclera non-icteric. NECK: Supple. No nuchal rigidity. FROM. No JVD. RESPIRATORY: Clear to auscultation. CARDIAC: Regular rate, normal rhythm. Extremities warm and well perfused. Pulses equal. ABDOMEN: Soft, non-distended. No tenderness to palpation. No rebound or guarding. No masses. RECTAL: Deferred. MUSCULOSKELETAL: Chest examination reveals no tenderness. The back is symmetrical on inspection without obvious abnormality. There is no CVA tenderness to palpation. No joint edema. Colostomy in place. LOWER EXTREMITIES: Calves are equal size bilaterally and non-tender. No edema. No discoloration. NEURO: Normal sensorium. No sensory or motor deficits noted. SKIN: No rash or jaundice noted. Course Course 1803: Past medical records reviewed. The patient was evaluated in room A11A. A complete history and physical exam was performed. 1927: I reevaluated the patient and she states that the GI cocktail did not help her pain. 2046: I reevaluated the patient and she states that she would like to be admitted. 2202: I [facility] the [facility] He will evaluate the patient for further management. Consultations Consultation #1: I discussed the patient's [facility] He will evaluate the patient for further management. Time: 22:03 Administered Medications Potassium Chloride/Sodium Chloride (Normal Saline W/20 Meq Kcl) 20 meq in 1,000 mls @ 100 mls/hr IV .Q10H HERMINIO Stop: 02/03/19 23:23 Last Admin: 01/05/19 00:19 Dose: 100 mls/hr Documented by: [id number] Ioversol (Optiray 320 125ml) 119 ml IV ONCE PRN PRN Reason: Interaction Checking Stop: 01/08/19 19:40 Last Admin: 01/04/19 19:45 Dose: 119 ml Documented by: [id number] Pantoprazole Sodium (Protonix) 40 mg PO BID HERMINIO Stop: 02/03/19 23:23 Last Admin: 01/05/19 00:19 Dose: 40 mg Documented by: [id number] Discontinued Medications Al Hydrox/Mg Hydrox/Simethicone () 1 dose PO ONE ONE Stop: 01/04/19 18:12 Last Admin: 01/04/19 18:56 Dose: 1 dose Documented by: [id number] Aspirin (Aspirin) 324 mg PO NOW STA Stop: 01/04/19 19:32 Last Admin: 01/04/19 19:37 Dose: 324 mg Documented by: [id number] Famotidine (Pepcid) 20 mg PO NOW ONE Stop: 01/04/19 18:12 Last Admin: 01/04/19 18:56 Dose: 20 mg Documented by: [id number] Ceftriaxone Sodium (Rocephin) 2,000 mg in 70 mls @ 140 mls/hr IV NOW STA Stop: 01/04/19 21:18 Last Infusion: 01/04/19 21:35 Dose: 0 mls/hr Documented by: [id number] Admin: 01/04/19 20:59 Dose: 140 mls/hr Documented by: [id number] Impression & Plan Chest pain, UTI (urinary tract infection), Ulcerative colitis Discharge Plan Visit Data *Final* Discharge Date/Time: 01/04/19 23:07 Chief Complaint: Chest Pain Stated Complaint: CHEST BURNING, DIZZINESS ED Provider: Miguel Reyes Discharge Problem: Chest pain, UTI (urinary tract infection), Ulcerative colitis Patient Disposition: Admitted As Inpatient Discharge Instructions Interventions: ED Discharge Assessment Last Done: 01/04/19 23:07 Medical Decision Making Differential Diagnosis Differential diagnosis: Etiologies such as shingles, musculoskeletal pain, pericarditis, myocarditis, cardiac ischemia, pericardial tamponade, pneumonia, pneumothorax, pleural effusion, hemothorax, pleurisy, aortic pathology, pulmonary embolism, intra- abdominal process, as well as others were considered. Medical Records Attestation: I reviewed the patient's medical records. Home Medications Current Medication List: was personally reviewed by me Laboratory Data Attestation: I reviewed the patient's lab results. Result diagrams: 01/04/19 18:26 01/04/19 18:26 Lab Results 01/04/19 01/04/19 01/04/19 Range/Units 18:26 18:26 18:26 WBC 8.55 (4.8-10.8) K/uL RBC 4.88 (4.2-5.4) M/uL Hgb 13.6 (12.0-16.0) g/dL POC Hgb (12.0-16.0) g/dl Hct 41.5 (37-47) % POC Hct (37-47) % MCV 85.0 (80-100) fL MCH 27.9 (25-34) pg MCHC 32.8 (32-36) g/dL RDW Std Deviation 43.6 (36.4-46.3) fL RDW Coeff of Barber 14.1 (11.5-14.5) % Plt Count 275 (130-400) K/uL MPV 9.8 (7.4-10.4) fL Immature Gran % (Auto) 0.1 % Neut % (Auto) 53.8 % Lymph % (Auto) 36.8 % [place] % (Auto) 7.0 % Eos % (Auto) 1.8 % Baso % (Auto) 0.5 % Immature Gran # (Auto) 0.01 (0.00-0.02) K/uL Neut # (Auto) 4.60 (1.4-6.5) K/uL Lymph # (Auto) 3.15 (1.2-3.4) K/uL [place] # (Auto) 0.60 H (0.11-0.59) K/uL Eos # (Auto) 0.15 (0-0.5) K/uL Baso # (Auto) 0.04 (0-0.2) K/uL POC D-Dimer (0-450) ng/mlFEU POC Sodium (135-144) mEq/L Sodium 140 (136-145) mmol/L POC Potassium (3.3-5.0) mEq/L Potassium 3.8 (3.5-5.1) mmol/L POC Chloride (101-112) mEq/L Chloride 107 (98-107) mmol/L Carbon Dioxide 27 (21-32) mmol/L POC Total CO2 (24-31) mEq/l Anion Gap 6.0 (3-11) POC Anion Gap (16-25) mmol/L POC BUN (7-18) mg/dl BUN 15 (7-18) mg/dl Creatinine 1.05 (0.6-1.2) mg/dl POC Creatinine (0.6-1.3) mg/dl Est Cr Clr Drug Dosing 91.2 ml/min Est GFR ( Amer) 73.8 Est GFR (Non-Af Amer) 63.6 BUN/Creatinine Ratio 14.4 (10-20) Glucose 84 (70-99) mg/dl POC Glucose (other) (70-99) mg/dl Calcium 9.0 (8.5-10.1) mg/dl POC Ioniz Calcium Capri (1.12-1.32) mmol/l Total Bilirubin 0.2 (0.2-1) mg/dl AST 19 (15-37) U/L ALT 35 (12-78) U/L Alkaline Phosphatase 89 (45-117) U/L Total Creatine Kinase 181 (26-192) U/L CK-MB (CK-2) 1.5 (0.5-3.6) ng/ml CK/CKMB % Calc 0.8 (0-3.0) Troponin I < 0.015 (0-0.045) ng/ml Total Protein 7.7 (6.4-8.2) gm/dl Albumin 3.8 (3.4-5.0) gm/dl Globulin 3.9 (2.5-4.0) gm/dl Albumin/Globulin Ratio 1.0 (0.9-2) Lipase 121 (73-393) U/L Urine Color Yellow Urine Appearance Slightly Cloudy (Clear) Urine pH 5.5 (4.5-7.5) Ur Specific [place] >= 1.030 (1.000-1.030) Urine Protein Trace H (Negative) Urine Glucose (UA) Negative (Negative) Urine Ketones Negative (Negative) Urine Blood Trace H (Negative) Urine Nitrite Negative (Negative) Urine Bilirubin Negative (Negative) Urine Urobilinogen Negative (Negative) Ur Leukocyte Esterase Trace H (Negative) Urine RBC 5-10 H (0-4) /hpf Urine WBC >30 H (0-5) /hpf Ur Epithelial Cells 20-30 H (0-5) /lpf Urine Crystals Calcium Oxalate A (None Prsent) Calcium Oxalate Crystal Present A (None Prsent) Urine Bacteria Negative (Negative) Urine Mucus Present A (None Prsent) 01/04/19 01/04/19 01/04/19 Range/Units 18:42 18:43 20:09 WBC (4.8-10.8) K/uL RBC (4.2-5.4) M/uL Hgb (12.0-16.0) g/dL POC Hgb 13.9 (12.0-16.0) g/dl Hct (37-47) % POC Hct 41 (37-47) % MCV (80-100) fL MCH (25-34) pg MCHC (32-36) g/dL RDW Std Deviation (36.4-46.3) fL RDW Coeff of Barber (11.5-14.5) % Plt Count (130-400) K/uL MPV (7.4-10.4) fL Immature Gran % (Auto) % Neut % (Auto) % Lymph % (Auto) % [place] % (Auto) % Eos % (Auto) % Baso % (Auto) % Immature Gran # (Auto) (0.00-0.02) K/uL Neut # (Auto) (1.4-6.5) K/uL Lymph # (Auto) (1.2-3.4) K/uL [place] # (Auto) (0.11-0.59) K/uL Eos # (Auto) (0-0.5) K/uL Baso # (Auto) (0-0.2) K/uL POC D-Dimer > 450 H* (0-450) ng/mlFEU POC Sodium 140 (135-144) mEq/L Sodium (136-145) mmol/L POC Potassium 3.7 (3.3-5.0) mEq/L Potassium (3.5-5.1) mmol/L POC Chloride 105 (101-112) mEq/L Chloride (98-107) mmol/L Carbon Dioxide (21-32) mmol/L POC Total CO2 27 (24-31) mEq/l Anion Gap (3-11) POC Anion Gap 13.0 L (16-25) mmol/L POC BUN 15 (7-18) mg/dl BUN (7-18) mg/dl Creatinine (0.6-1.2) mg/dl POC Creatinine 1.1 (0.6-1.3) mg/dl Est Cr Clr Drug Dosing ml/min Est GFR ( Amer) Est GFR (Non-Af Amer) BUN/Creatinine Ratio (10-20) Glucose (70-99) mg/dl POC Glucose (other) 83 (70-99) mg/dl Calcium (8.5-10.1) mg/dl POC Ioniz Calcium Capri 1.21 (1.12-1.32) mmol/l Total Bilirubin (0.2-1) mg/dl AST (15-37) U/L ALT (12-78) U/L Alkaline Phosphatase (45-117) U/L Total Creatine Kinase (26-192) U/L CK-MB (CK-2) (0.5-3.6) ng/ml CK/CKMB % Calc (0-3.0) Troponin I < 0.015 (0-0.045) ng/ml Total Protein (6.4-8.2) gm/dl Albumin (3.4-5.0) gm/dl Globulin (2.5-4.0) gm/dl Albumin/Globulin Ratio (0.9-2) Lipase (73-393) U/L Urine Color Urine Appearance (Clear) Urine pH (4.5-7.5) Ur Specific [place] (1.000-1.030) Urine Protein (Negative) Urine Glucose (UA) (Negative) Urine Ketones (Negative) Urine Blood (Negative) Urine Nitrite (Negative) Urine Bilirubin (Negative) Urine Urobilinogen (Negative) Ur Leukocyte Esterase (Negative) Urine RBC (0-4) /hpf Urine WBC (0-5) /hpf Ur Epithelial Cells (0-5) /lpf Urine Crystals (None Prsent) Calcium Oxalate Crystal (None Prsent) Urine Bacteria (Negative) Urine Mucus (None Prsent) Imaging Data Radiologist's Impression: Radiology results as stated below per my review and the radiologist's interpretation: XR chest 1V portable HISTORY: 48 years-old Female Chest Pain acute atypical chest pain COMPARISON: None available TECHNIQUE: Portable AP view of the chest FINDINGS: Cardiomediastinal and hilar silhouettes are within normal limits. No pneumothorax, pleural effusion, focal airspace consolidation or overt pulmonary edema. Degenerative changes of the shoulders and spine. IMPRESSION: No acute process. The above report was generated using voice recognition software. It may contain grammatical, syntax or spelling errors. Electronically signed by: Rob Odell M.D. 01/04/2019 6:[address] angio chest PE protocol CT DOSE: 965.47 mGy.cm HISTORY: 48 years-old Female with PE. Acute chest pain TECHNIQUE: Multiple CTA images of the chest were obtained after the intravenous administration of 119 ml Optiray 320. Coronal and sagittal MIPS were obtained from the axial data set and were submitted for review. All measurements were obtained according to NASCET criteria. A dose lowering technique was utilized adhering to the principles of ALARA. COMPARISON: Chest radiograph of same day. FINDINGS: CTA: Heart is normal in size. No pericardial effusion. There is no thoracic aortic aneurysm or dissection. Patency of the imaged great vessels. The pulmonary arterial tree is opacified to level the proximal subsegmental branches and demonstrates no focal filling defects to suggest pulmonary thromboembolic disease. CT CHEST: Unremarkable thyroid. Opacified collateral veins of the anterior mediastinum with suggestion of right subclavian venous stenosis at the level of the thoracic inlet as the vein crosses over the right first rib. There is no adenopathy by CT size criteria. No pneumothorax or pleural effusion. Minimal dependent bibasilar atelectasis. There are no suspicious pulmonary nodules or masses. No overt pulmonary edema or focal airspace consolidation to suggest pneumonia. Central airways appear patent. There is a subcentimeter tracheocele within the right tracheoesophageal recess on image 261 series 4 at the level of T1. No acute process of the imaged upper abdomen. Hepatic steatosis. Soft tissues and breast parenchyma appear unremarkable. Bones appear intact. No acute fracture. IMPRESSION: 1. No acute intrathoracic abnormality, specifically there is no evidence of pulmonary thromboembolic disease. 2. Hepatic steatosis. The above report was generated using voice recognition software. It may contain grammatical, syntax or spelling errors. Electronically signed by: Rob Odell M.D. 01/04/2019 8:20 PM ECG Data Attestation: I personally reviewed and interpreted this ECG as follows: Indication: + chest pain Rate (beats per minute): 67 Rhythm: + normal sinus ECG ST segments: no ST depression and no ST elevation ECG Findings: + Other (normal axis, QTC 407) Comparison ECG Date: from (06/19/2016) Change: no significant change Additional Comments: REPEAT EKG: Rate: 74 Rhythm: Normal sinus rhythm Findings: Unchanged from 1st EKG, no ST elevation, no ST depression, QTC 444, normal axis. Blood Pressure Blood Pressure Findings: Normal blood pressure Blood Pressure Disposition: did not require urgent referral MDM Narrative This is a 48-year-old female who presents emergency department complaining of chest pain. Upon arrival to the emergency department the patient was placed in observation. Patient has no family history of Myocardial Infarction Observation began at 1721 and was necessary in order to Rule out cardiac ischemia and to preclude an unnecessary admission. Upon re-evaluation, observation revealed that the patient should be admitted. Patient discharged from observation at 2203 and discussed with the hospitalist at that time. Serial EKGs as well as serial troponins were obtained in the emergency department. The patient does have a large amount of white blood cells in her urine. I did discuss these findings with the patient and the decision was made to start the patient on IV Rocephin. I did feel that the patient was safe to go home however she wishes to be admitted for observation for this reason I did discuss the case with the [facility] service who agreed to admit the patient. The scribe's documentation has been prepared under my direction and personally reviewed by me in its entirety. I confirm that the note above accurately reflects all work, treatment, procedures, and medical decision making performed by me.
[2019-01-05] MEDS: LEVOTHYROXINE SODIUM 88 MCG TABLET PO SCH (06:18)
[2019-01-05] MEDS ORDERED: SUCRALFATE 1 GM TAB PO SCH (07:30)
[2019-01-05] MEDS ORDERED: PERFLUTREN LIPID MICROSPHERE (DEFINITY) IV ONE (08:04)
--- NOTE | 2019-01-05 09:33 | Hospitalist Progress Note ---
Date of Service January 05, 2019 Assessment & Plan (1) Epigastric burning sensation: Epigastric burning sensation for the past 2 weeks/history of GERD/ulcerative colitis- continue Protonix BID, stop Carafate as it is not helping allow her to eat today, will make NPO after midnight for possible EGD tomorrow routine consult for Dr. Davis for his recommendations long h/o GERD but never this severe CTA chest negative for PE troponin negative x 4 draws, ACS ruled out repeat EKG this morning as she is having symptoms follow up results of echocardiogram if echo normal, EKG normal would recommend outpatient stress test, can refer [place] [facility] [place] would proceed with EGD if recommended as symptoms more likely GI related (2) GERD (gastroesophageal reflux disease): continue Protonix BID stop Carafate as it is not helping at all (3) Ulcerative colitis: s/p colectomy with ileostomy would like to change to [facility] [place] (4) Hypothyroidism: Continue levothyroxine sodium 80 mcg p.o. every morning change status to full admission as we will keep two midnights, potential EGD tomorrow Subjective patient continues to have some epigastric burning no dyspnea no history of coronary disease, never had a stress test she has some risk factors with obesity, inflammatory disease, has a brother with CAD troponin neg x 4 draws CTA negative for PE echo was done this morning, will follow up results discussed her PCP, currently follows with [facility], however, her insurance is changing, no longer can see [facility] she wants to transfer her [place] [facility] [place] chart, reviewed labs, reviewed EKG she says she has no relief with Carafate, does not want to take it she reports that she follows with [facility], she was supposed to have barium swallow and flex sig this week she does not want to see [facility], she wants a new GI doctor Review of Systems Review of Systems: All systems reviewed & are unremarkable except as noted in HPI & below Constitutional: no fever, no chills, no sweats, no fatigue, no weakness and no weight loss Respiratory: no cough and no dyspnea Cardiovascular: no chest pain, no radiating jaw, neck or arm pain, no palpitations, no syncope and no edema Gastrointestinal: + abdominal pain (epigastric), + heartburn and + problem reported (ileostomy); no nausea, no vomiting, no coffee ground emesis, no constipation and no diarrhea/loose stools Physical Exam Constitutional: WD/WN, vitals as above + obese Eyes: PERRL, conjunctivae normal, anicteric sclerae ENMT: external ear and nose normal, oropharynx normal Neck: trachea midline, no thyromegaly Respiratory: normal respiratory effort, lungs clear to auscultation Cardiovascular: RRR, no murmur, no edema Gastrointestinal (Abdomen): normal bowel sounds, soft, nontender, no hepatosplenomegaly Musculoskeletal: no cyanosis or clubbing, extremities motor strength 5/5 Skin: no rashes, warm and dry Neurologic: patellar DTR's 2+ bilat, sensation intact and PERRL, EOMI, accommodation nl, no face palsy, no dysarthria Psychiatric: A+Ox3, euthymic affect Lymphatic: no cervical or axillary lymphadenopathy Results & Data Vital Signs (Past 12 Hours) Vital Signs Temp Pulse Pulse Resp BP BP Pulse Ox 01/05/19 08:48 36.5 C 59 L 20 115/73 96 01/05/19 03:05 36.4 C L 61 18 96/59 L 96 01/04/19 23:25 36.4 C L 64 20 100/66 100 01/04/19 22:31 98 01/04/19 22:01 69 18 96 01/04/19 22:00 68 14 124/83 93 01/04/19 21:31 68 16 96 01/04/19 21:30 68 16 133/88 Laboratory Results Laboratory Results - last 24 hr 01/04/19 01/04/19 01/04/19 18:26 18:26 18:26 WBC 8.55 RBC 4.88 Hgb 13.6 POC Hgb Hct 41.5 POC Hct MCV 85.0 MCH 27.9 MCHC 32.8 RDW Std Deviation 43.6 RDW Coeff of Barber 14.1 Plt Count 275 MPV 9.8 Immature Gran % (Auto) 0.1 Neut % (Auto) 53.8 Lymph % (Auto) 36.8 Grimes % (Auto) 7.0 Eos % (Auto) 1.8 Baso % (Auto) 0.5 Immature Gran # (Auto) 0.01 Neut # (Auto) 4.60 Lymph # (Auto) 3.15 Grimes # (Auto) 0.60 H Eos # (Auto) 0.15 Baso # (Auto) 0.04 POC D-Dimer POC Sodium Sodium 140 POC Potassium Potassium 3.8 POC Chloride Chloride 107 Carbon Dioxide 27 POC Total CO2 Anion Gap 6.0 POC Anion Gap POC BUN BUN 15 Creatinine 1.05 POC Creatinine Est Cr Clr Drug Dosing 91.2 Est GFR ( Amer) 73.8 Est GFR (Non-Af Amer) 63.6 BUN/Creatinine Ratio 14.4 Glucose 84 POC Glucose POC Glucose (other) Calcium 9.0 POC Ioniz Calcium Capri Total Bilirubin 0.2 AST 19 ALT 35 Alkaline Phosphatase 89 Total Creatine Kinase 181 CK-MB (CK-2) 1.5 CK/CKMB % Calc 0.8 Troponin I < 0.015 Total Protein 7.7 Albumin 3.8 Globulin 3.9 Albumin/Globulin Ratio 1.0 Lipase 121 Urine Color Yellow Urine Appearance Slightly Cloudy Urine pH 5.5 Ur Specific [place] >= 1.030 Urine Protein Trace H Urine Glucose (UA) Negative Urine Ketones Negative Urine Blood Trace H Urine Nitrite Negative Urine Bilirubin Negative Urine Urobilinogen Negative Ur Leukocyte Esterase Trace H Urine RBC 5-10 H Urine WBC >30 H Ur Epithelial Cells 20-30 H Urine Crystals Calcium Oxalate A Calcium Oxalate Crystal Present A Urine Bacteria Negative Urine Mucus Present A 01/04/19 01/04/19 01/04/19 18:42 18:43 20:09 WBC RBC Hgb POC Hgb 13.9 Hct POC Hct 41 MCV MCH MCHC RDW Std Deviation RDW Coeff of Barber Plt Count MPV Immature Gran % (Auto) Neut % (Auto) Lymph % (Auto) Grimes % (Auto) Eos % (Auto) Baso % (Auto) Immature Gran # (Auto) Neut # (Auto) Lymph # (Auto) Grimes # (Auto) Eos # (Auto) Baso # (Auto) POC D-Dimer > 450 H* POC Sodium 140 Sodium POC Potassium 3.7 Potassium POC Chloride 105 Chloride Carbon Dioxide POC Total CO2 27 Anion Gap POC Anion Gap 13.0 L POC BUN 15 BUN Creatinine POC Creatinine 1.1 Est Cr Clr Drug Dosing Est GFR ( Amer) Est GFR (Non-Af Amer) BUN/Creatinine Ratio Glucose POC Glucose POC Glucose (other) 83 Calcium POC Ioniz Calcium Capri 1.21 Total Bilirubin AST ALT Alkaline Phosphatase Total Creatine Kinase CK-MB (CK-2) CK/CKMB % Calc Troponin I < 0.015 Total Protein Albumin Globulin Albumin/Globulin Ratio Lipase Urine Color Urine Appearance Urine pH Ur Specific [place] Urine Protein Urine Glucose (UA) Urine Ketones Urine Blood Urine Nitrite Urine Bilirubin Urine Urobilinogen Ur Leukocyte Esterase Urine RBC Urine WBC Ur Epithelial Cells Urine Crystals Calcium Oxalate Crystal Urine Bacteria Urine Mucus 01/04/19 01/05/19 01/05/19 23:37 07:28 07:29 WBC RBC Hgb POC Hgb Hct POC Hct MCV MCH MCHC RDW Std Deviation RDW Coeff of Barber Plt Count MPV Immature Gran % (Auto) Neut % (Auto) Lymph % (Auto) Grimes % (Auto) Eos % (Auto) Baso % (Auto) Immature Gran # (Auto) Neut # (Auto) Lymph # (Auto) Grimes # (Auto) Eos # (Auto) Baso # (Auto) POC D-Dimer POC Sodium Sodium POC Potassium Potassium POC Chloride Chloride Carbon Dioxide POC Total CO2 Anion Gap POC Anion Gap POC BUN BUN Creatinine POC Creatinine Est Cr Clr Drug Dosing Est GFR ( Amer) Est GFR (Non-Af Amer) BUN/Creatinine Ratio Glucose POC Glucose 90 POC Glucose (other) Calcium POC Ioniz Calcium Capri Total Bilirubin AST ALT Alkaline Phosphatase Total Creatine Kinase CK-MB (CK-2) CK/CKMB % Calc Troponin I < 0.015 < 0.015 Total Protein Albumin Globulin Albumin/Globulin Ratio Lipase Urine Color Urine Appearance Urine pH Ur Specific [place] Urine Protein Urine Glucose (UA) Urine Ketones Urine Blood Urine Nitrite Urine Bilirubin Urine Urobilinogen Ur Leukocyte Esterase Urine RBC Urine WBC Ur Epithelial Cells Urine Crystals Calcium Oxalate Crystal Urine Bacteria Urine Mucus Medications Administered Current Inpatient Medications Acetaminophen (Tylenol) 650 mg PO Q4H PRN PRN Reason: Pain or Fever Stop: 02/03/19 23:23 Al Hydrox/Mg Hydrox/Simethicone (Maalox) 15 ml PO Q4H PRN PRN Reason: Dyspepsia Stop: 02/03/19 23:23 Potassium Chloride/Sodium Chloride (Normal Saline W/20 Meq Kcl) 20 meq in 1,000 mls @ 50 mls/hr IV .Q20H HERMINIO Stop: 01/05/19 23:59 Last Admin: 01/05/19 00:19 Dose: 100 mls/hr Documented by: Ioversol (Optiray 320 125ml) 119 ml IV ONCE PRN PRN Reason: Interaction Checking Stop: 01/08/19 19:40 Last Admin: 01/04/19 19:45 Dose: 119 ml Documented by: Levothyroxine Sodium (Synthroid) 88 mcg PO DAILYBB [facility] Stop: 02/04/19 06:29 Last Admin: 01/05/19 06:18 Dose: 88 mcg Documented by: Magnesium Hydroxide (Milk Of Magnesia) 30 ml PO Q12H PRN PRN Reason: Constipation Stop: 02/03/19 23:23 Nitroglycerin (Nitrostat) 0.4 mg SL PRN PRN PRN Reason: Chest Pain Stop: 02/03/19 19:30 Ondansetron HCl (Zofran) 4 mg IV Q6H PRN PRN Reason: Nausea Stop: 02/03/19 23:23 Pantoprazole Sodium (Protonix) 40 mg PO BID [facility] Stop: 02/03/19 23:23 Last Admin: 01/05/19 08:53 Dose: 40 mg Documented by: PG Care Time/CCT Total # of Minutes Spent Total Time Spent with Patient: Total time spent is greater than 50% in coordination of care (as documented) at patient's floor/unit and/or counseling patient:
[2019-01-06] MEDS: LEVOTHYROXINE SODIUM 88 MCG TABLET PO SCH (06:16)
[2019-01-06] MEDS: PANTOprazole 40 MG TAB PO SCH ×2 (09:18→20:18)
--- NOTE | 2019-01-06 09:30 | Gastrointestinal Consultation ---
Date of Consultation January 06, 2019 Assessment & Plan (1) Epigastric burning sensation: Atypical symptoms. Patient reports this does not feel similar to previous episodes of GERD. She reports exertional epigastric pain with no relationship to food and has radiation through L arm & back. No response to BID PPI therapy & Carafate. Patient has no alarm symptoms of melena, dysphagia, or hematemesis. -Barium swallow for further evaluation. -Protonix 40 mg BID. -Pepcid 20 mg BID. -Pending results, patient may require further outpatient evaluation. (2) Ulcerative colitis: -Proceed with outpatient work-up as planned with [facility]. Patient is scheduled for a scope to assess her rectal stump on Sunday. Thank you for allowing us to participate in the care of this patient. If you should have any further questions or concerns, do not hesitate to contact us at extension [phone] or [phone]. Supervising Physician Co-Signing Physician Notes Agree with GUS Hatch Abd: Soft, tender midepigastric area, ostomy in RLQ, ND Barium swallow was negative Continue current therapy Proceed with EGD tomorrow. History of Present Illness Reason for Consultation: "Intractable GERD" Attending Physician: Carissa Knox MD History of Present Illness Patient is a 48 yo female with a PMH of ulcerative colitis s/p colectomy, GERD, hypothyroidism, uterine cancer, & IBS. GI has been consulted for "intractable GERD." The patient reports that her symptoms have been ongoing for 2 weeks. She has been on BID Protonix therapy and Carafate without improvement of her symptoms. She insists to me that this is not the same as her previous GERD symptoms. She reports no association with food. She reports that the symptoms begin when she exerts herself. She reports epigastric pain with radiation through her left shoulder and back. She denies nausea, vomiting. She denies NSAID use. She denies dysphagia. She is a patient of [facility] & was arranged for a barium swallow to be done as an outpatient today. Reportedly she has had no EKG or troponin changes while admitted. She had an echocardiogram performed as well. She denies family history of primary GI malignancy. H/H 13.6/41.5, BUN 15, Cr 1.05. CTA without acute GI pathology. As for her history of Ulcerative Colitis, she had a colectomy, but has a rectal stump remaining in case she decided she wanted to reverse her ostomy & convert to a J pouch. She reports she has active disease in her rectum but does not take medication for it. She is reportedly scheduled for an outpatient colonoscopy this week for this issue with her usual GI. Allergies Allergy/AdvReac Type Severity Reaction Status Date / Time clavulanic acid Allergy Severe TONGUE Verified 01/04/19 20:33 SWELLS Penicillins Allergy Severe TONGUE Verified 01/04/19 20:33 SWELLS prednisone Allergy Severe HAIR FALLS Verified 01/04/19 20:33 OUT infliximab [From Remicade] Allergy Intermediate Hives Verified 01/04/19 20:33 adalimumab AdvReac Severe Drug Verified 01/04/19 20:33 induced Lupus mercaptopurine AdvReac Unknown Elevated Verified 01/04/19 20:33 liver enzymes methotrexate AdvReac Unknown Elevated Verified 01/04/19 20:33 liver enzymes vedolizumab [From Entyvio] AdvReac Unknown Drug Verified 01/04/19 20:33 induced Lupus BETALACTAMASEIN Allergy Severe TONGUE Uncoded 01/04/19 20:33 SWELLS Home Medications Home Medications Medication Instructions Recorded Confirmed Type coconut oil 2,000 mg PO QAM 01/04/19 01/04/19 History difluprednate [Durezol] 1 drp OPB Q2D 01/04/19 01/04/19 History hydroxychloroquine 200 mg PO BID 01/04/19 01/04/19 History levothyroxine 88 mcg PO QAM 01/04/19 01/04/19 History pantoprazole 40 mg PO BID 01/04/19 01/04/19 History sucralfate 1 g PO ACHS 01/04/19 01/04/19 History turmeric-turmeric ext-pepper 500 mg PO DAILY 01/04/19 01/04/19 History Patient History Medical History (Updated 01/05/19 @ 01:14 by Tavon Quiñones MD) GERD (gastroesophageal reflux disease) Hypothyroidism (Chronic) Irritable bowel (Chronic) Ulcerative colitis (Chronic) Uterine cancer (Resolved) Surgical History (Updated 01/04/19 @ 18:22 by Eboni Moses) H/O: hysterectomy (Chronic) History of cholecystectomy Social History Preferred Language: Hungarian Communication Ability: Effective Beliefs That Will Affect Care: None Current Living Situation: Alone Other Information That Helps Us Care for You: No Feels Safe at Home: Yes Safety Concerns: Feels Safe At This Time Smoking Status: Former smoker Do You Dip or Chew Tobacco: No ; Second Hand Exposure: No ; Tobacco Cessation Education Requested by Patient: No Hx Alcohol Use: No Hx Substance Use: No Review of Systems Constitutional: no fever and no chills Eyes: no acute issues Ear, Nose, Mouth, Throat: no acute issues Respiratory: no cough and no dyspnea Cardiovascular: no chest pain Gastrointestinal: + abdominal pain (epigastric pain) and + blood in stools; no belching, no bloating, no early satiety, no heartburn, no nausea, no vomiting, no dysphagia, no change in bowel habits, no diarrhea/loose stools and no constant urge to pass stools Musculoskeletal: no back pain L shoulder pain Integumentary: no rash Neurologic: no dizziness Psychiatric: no acute complaints Hematologic / Lymphatic: no easy bleeding Physical Exam Constitutional: WD/WN, vitals as above Eyes: PERRL, conjunctivae normal, anicteric sclerae ENMT: external ear and nose normal, oropharynx normal Neck: normal visual inspection Respiratory: normal respiratory effort, lungs clear to auscultation Cardiovascular: RRR, no murmur, no edema Gastrointestinal (Abdomen): normal bowel sounds, soft, nontender, no hepatosplenomegaly Musculoskeletal: Extremities: extremities normal to inspection Skin: no rashes, warm and dry Neurologic: Speech / Cognition: normal speech Psychiatric: A+Ox3, euthymic affect Results & Data Vital Signs (Past 12 Hours) Vital Signs Temp Pulse Resp BP Pulse Ox 01/06/19 07:26 36.4 C L 61 20 121/71 98 01/06/19 04:04 36.8 C 68 20 143/84 H 98 01/05/19 23:41 36.5 C 63 18 142/85 H 98 PG Care Time/CCT Total # of Minutes Spent Total Time Spent with Patient: Total time spent is greater than 50% in coordination of care (as documented) at patient's floor/unit and/or counseling patient:
--- NOTE | 2019-01-06 12:11 | Fluoroscopy Report ---
DOUBLE CONTRAST BARIUM ESOPHAGRAM CLINICAL HISTORY: Epigastric abdominal pain. Gastroesophageal reflux disease. COMPARISON STUDY: No priors. TECHNIQUE: A standard air contrast barium esophagram is performed. Multiple spot images of the esopha michele are acquired both upright and prone. FINDINGS: The patient swallowed barium and the barium pill without difficulty. The mucosal pattern is normal. There is no evidence of intrinsic or extrinsic mass lesion. No aspiration was seen. The gas troesophageal junction distended normally. No gastroesophageal reflux could be elicited by having the patient perform the Valsalva maneuver. Fluoroscopy time: 1.0 minutes. Fluoroscopic images: 25 IMPRESSION: Normal barium esophagram. Electronically signed by: Oskar Edward M.D. 01/06/2019 12:10 PM
[2019-01-06] MEDS: FAMOTIDINE 20 MG TAB PO SCH ×2 (12:22→20:18)
[2019-01-06 15:24] LABS: BUN Creatinine Ratio 9.9 (10-20); Calcium 9.1 mg/dl (8.5-10.1); Creatinine Clr Calc Pharmacy 89.4 ml/min; Est GFR (African American) 77.3; Est GFR (Non-African American) 66.7; Magnesium 1.8 mg/dl (1.8-2.4); Potassium 3.9 mmol/L (3.5-5.1)
--- NOTE | 2019-01-06 20:13 | Hospitalist Progress Note ---
Date of Service January 06, 2019 Assessment & Plan (1) Epigastric burning sensation: Epigastric burning sensation for the past 2 weeks/history of GERD/ulcerative colitis- Not improved with Carafate or IV Zantac Barium swallow negative CTA chest negative for PE or other acute issue troponin negative x 4 draws, ACS ruled out ECG is oh with nonspecific T wave changes Resting echocardiogram normal Stress echocardiogram read as normal but upon discussion with cardiology, apex of heart could not be well visualized due to body habitus most likely -Given exertional symptoms relieved with rest, despite other atypical features- discussed possibility of cardiac catheterization tomorrow -N.p.o. after midnight Depending on results of cardiac catheterization, may need to proceed with EGD after that -Discussed with GI as well (2) GERD (gastroesophageal reflux disease): continue Protonix BID Discontinue Carafate -GI started Pepcid 20 mill grams p.o. twice daily (3) Ulcerative colitis: s/p colectomy with ileostomy and has rectal stump would like to change to [facility] ultimately as an outpatient -Plans for rectal stump scope on Sunday of this week due to having rectal bleeding (4) Hypothyroidism: No recent TSH in the system -Continue home levothyroxine 88 mcg daily (5) Anxiety disorder: Patient reports a long history of anxiety which had been under some control but seems to have a lot of issues related to her history of uterine cancer and fear that she will have return of cancer -Current ongoing symptoms are exacerbating her anxiety -Suggest follow-up with outpatient psychology (6) Obesity: BMI 40.7 -She is working on weight loss currently and has recently lost 10 pounds (7) Fatty liver: Noted on CT of the chest -Encouraged continued weight loss (8) DVT prophylaxis: SCDs Disposition-remain on telemetry overnight and n.p.o. after midnight for cardiac catheterization and possible EGD tomorrow Subjective Patient continues to have a burning sensation in the lower mid chest area radiating through to the left scapula with exertion. She also describes a different chest pressure higher up in the chest with "panic attacks." She is extremely anxious and tearful throughout the 3 times I visited her today she is convinced that she has recurrent cancer causing her symptoms. She does state that her chest burning sensation does come on with exertion and is relieved with rest after a few minutes. She does however report increased halitosis which she has had in the past with GI related issues. I discussed her case with cardiology-she did have some subtle ST depressions on the ECG portion of her stress echo and was only able to achieve 5.2 METS and did not have chest pain during the test. Patient reports she has to exert herself more than that in order to have the pain. She is agreeable to cardiac catheterization as the apex of the heart was apparently not well visualized likely due to body habitus on echocardiogram -She also would like to have an EGD while she is in the hospital I discussed her case with GI as well Telemetry with sinus bradycardia and NSR with rates in the 40s to 60s. There is a question of some nonsustained ventricular tachycardia-I reviewed the telemetry strips with cardiology who thinks it is artifact Review of Systems Review of Systems: All systems reviewed & are unremarkable except as noted in HPI & below Physical Exam Constitutional: WD/WN, vitals as above + morbidly obese Eyes: + anicteric sclerae ENMT: external ear and nose normal, oropharynx normal Neck: trachea midline, no thyromegaly Respiratory: normal respiratory effort, lungs clear to auscultation Cardiovascular: RRR, no murmur, no edema Gastrointestinal (Abdomen): normal bowel sounds, soft, nontender, no hepatosplenomegaly Musculoskeletal: Extremities: extremities normal to inspection; no cyanosis and no clubbing Skin: no rashes, warm and dry Neurologic: moves all extremities and awake; no focal motor deficits Psychiatric: Orientation: alert and oriented x 3 Affect: + anxious affect and + tearful affect Mood: + anxious mood Results & Data Vital Signs (Past 12 Hours) Vital Signs Temp Pulse Pulse Resp BP Pulse Ox 01/06/19 19:52 36.7 C 74 19 131/78 96 01/06/19 16:43 68 01/06/19 15:17 36.3 C L 63 18 114/77 100 01/06/19 12:00 36.4 C L 65 18 128/79 98 01/06/19 11:15 36.6 C 65 20 135/84 98 Laboratory Results 01/06/19 Range/Units 14:46 Sodium 142 (136-145) mmol/L Potassium 3.9 (3.5-5.1) mmol/L Chloride 107 (98-107) mmol/L Carbon Dioxide 28 (21-32) mmol/L Anion Gap 6.0 (3-11) BUN 10 D (7-18) mg/dl Creatinine 1.01 (0.6-1.2) mg/dl Est Cr Clr Drug Dosing 89.4 ml/min Est GFR ( Amer) 77.3 Est GFR (Non-Af Amer) 66.7 BUN/Creatinine Ratio 9.9 L (10-20) Glucose 85 (70-99) mg/dl Calcium 9.1 (8.5-10.1) mg/dl Magnesium 1.8 (1.8-2.4) mg/dl PG Care Time/CCT Total # of Minutes Spent Total Time Spent with Patient: Total time spent is greater than 50% in coordination of care (as documented) at patient's floor/unit and/or counseling patient:
--- NOTE | 2019-01-06 23:32 | Cardiology Consultation ---
Date of Consultation January 06, 2019 Assessment & Plan (1) Epigastric burning sensation: 2. Ulcerative colitis post colectomy 3. GERD 4. Family history of premature coronary disease 5. Prior tobacco abuse Reviewed patient's exercise stress echo, telemetry and EKGs. Suspicion for ACS and/or high risk coronary artery disease is relatively low at this point. However, patient does have significant cardiac risk factors and symptoms potentially consistent with typical angina without another clear etiology despite thorough initial work-up. Stress echo images somewhat technically limited and exercise capacity reduced. In that setting feel reasonable to undertake cardiac catheterization to rule out symptomatic coronary artery disease. Discussed risks, benefits, alternatives of procedure with patient. She wishes to discuss further with . If no plans for additional testing tomorrow and patient wishes to undergo could potentially do procedure around lunchtime tomorrow via right radial artery. Please keep n.p.o. Thank you for allowing us to participate in the care of this patient. Please contact with any questions. History of Present Illness Attending Physician: Carissa Knox MD History of Present Illness Mrs. Emmanuel is a pleasant 48-year-old woman with no prior cardiac history seen today for intermittent burning chest discomfort. Past medical history is remarkable for ulcerative colitis post colectomy, GERD, hypothyroidism, uterine cancer, IBS.' She was admitted 2 days ago with approximately 2 weeks of epigastric/chest burning. Symptoms seem to occur more with exertion and relieved with rest. Symptoms are new and becoming more frequent. Has been taking twice daily PPI as well as sucralfate without significant improvement. One episode occurring while she was riding in a car which prompted her to present to the ED due to concern for heart attack. Since admission EKG notable for only nonspecific ST abnormalities. Serial troponin negative. Seen by GI and barium swallow unremarkable. Chest CTA unremarkable. Underwent exercise stress echo today. Below average functional capacity. Stress EKG negative. Chest discomfort not reproduced. Stress echo negative although imaging limited particularly apex. Some question of nonsustained VT on telemetry which appears to be more artifact. Family history: Brother with AL/coronary disease at age 50, another brother with congenital heart disease. 2 grandkids with congenital heart disease Social history: Smoked for about 10 years, quit 15+ years ago. Denies heavy alcohol. Not working currently. , 2 grown kids. Grandkids live with her. Allergies Allergy/AdvReac Type Severity Reaction Status Date / Time clavulanic acid Allergy Severe TONGUE Verified 01/04/19 20:33 SWELLS Penicillins Allergy Severe TONGUE Verified 01/04/19 20:33 SWELLS prednisone Allergy Severe HAIR FALLS Verified 01/04/19 20:33 OUT infliximab [From Remicade] Allergy Intermediate Hives Verified 01/04/19 20:33 adalimumab AdvReac Severe Drug Verified 01/04/19 20:33 induced Lupus mercaptopurine AdvReac Unknown Elevated Verified 01/04/19 20:33 liver enzymes methotrexate AdvReac Unknown Elevated Verified 01/04/19 20:33 liver enzymes vedolizumab [From Entyvio] AdvReac Unknown Drug Verified 01/04/19 20:33 induced Lupus BETALACTAMASEIN Allergy Severe TONGUE Uncoded 01/04/19 20:33 SWELLS Home Medications Home Medications Medication Instructions Recorded Confirmed Type coconut oil 2,000 mg PO QAM 01/04/19 01/04/19 History difluprednate [Durezol] 1 drp OPB Q2D 01/04/19 01/04/19 History hydroxychloroquine 200 mg PO BID 01/04/19 01/04/19 History levothyroxine 88 mcg PO QAM 01/04/19 01/04/19 History pantoprazole 40 mg PO BID 01/04/19 01/04/19 History sucralfate 1 g PO ACHS 01/04/19 01/04/19 History turmeric-turmeric ext-pepper 500 mg PO DAILY 01/04/19 01/04/19 History Patient History Medical History (Updated 01/05/19 @ 01:14 by Tavon Quiñones MD) GERD (gastroesophageal reflux disease) Hypothyroidism (Chronic) Irritable bowel (Chronic) Ulcerative colitis (Chronic) Uterine cancer (Resolved) Surgical History (Updated 01/04/19 @ 18:22 by Eboni Moses) H/O: hysterectomy (Chronic) History of cholecystectomy Social History Preferred Language: Latvian Communication Ability: Effective Beliefs That Will Affect Care: None Current Living Situation: Alone Other Information That Helps Us Care for You: No Feels Safe at Home: Yes Safety Concerns: Feels Safe At This Time Smoking Status: Former smoker Do You Dip or Chew Tobacco: No ; Second Hand Exposure: No ; Tobacco Cessation Education Requested by Patient: No Hx Alcohol Use: No Hx Substance Use: No Review of Systems Review of Systems: All systems reviewed & are unremarkable except as noted in HPI & below Physical Exam Physical Exam: General: Comfortable, no acute distress, intermittently tearful Eyes: Sclerae anicteric, extraocular movements intact HENT: Oropharynx clear mucous membranes moist Neck: Normal carotid upstrokes, no bruits. No JVD. Lungs: Clear to auscultation bilaterally, no rhonchi or wheezes Cardiac: Regular rate and rhythm, no murmurs, rubs or gallops. Vascular: 2+ radial bilaterally Abdomen: Soft, nontender, nondistended, positive bowel sounds. Extremities: Well perfused, no peripheral edema Skin: No rashes or lesions. Neuro: Nonfocal Psych: Alert orient x3, normal affect and mood Results & Data Vital Signs (Past 12 Hours) Vital Signs Temp Pulse Pulse Resp BP Pulse Ox 01/06/19 19:52 98.1 F 74 19 131/78 96 01/06/19 16:43 68 01/06/19 15:17 97.3 F L 63 18 114/77 100 01/06/19 12:00 97.5 F L 65 18 128/79 98 PG Care Time/CCT Total # of Minutes Spent Total Time Spent with Patient: Total time spent is greater than 50% in coordination of care (as documented) at patient's floor/unit and/or counseling patient:
[2019-01-07] MEDS: LEVOTHYROXINE SODIUM 88 MCG TABLET PO SCH (06:02)
[2019-01-07] MEDS: PANTOprazole 40 MG TAB PO SCH ×2 (08:30→20:55)
[2019-01-07] MEDS: FAMOTIDINE 20 MG TAB PO SCH ×2 (08:30→20:55)
[2019-01-07] MEDS ORDERED: NiCARDipine HCL INJ 2.5 MG/ML 10 ML AMP ONE (11:58)
[2019-01-07] MEDS ORDERED: MIDAZOLAM HCL 1 MG/ML 2ML VIAL ONE ×2 (11:58→11:59)
[2019-01-07] MEDS ORDERED: fentaNYL citrate 100 MCG/2 ML VIAL ONE (11:58)
[2019-01-07] MEDS ORDERED: HEPARIN (PORCINE) 1000 UNIT/ML 10 ML (CATH LAB USE ONLY) ONE (11:59)
[2019-01-07] MEDS ORDERED: NITROGLYCERIN/D5W 100MCG/ML 20ML SYR ONE (12:00)
[2019-01-07] MEDS ORDERED: DiphenhydrAMINE HCL 50 MG/ML VIAL ONE (12:04)
--- NOTE | 2019-01-07 12:43 | Pre Anesthesia Assessment ---
Date of Service January 07, 2019 Pre Sedation Assessment Vital Signs Temp Pulse Pulse Resp BP Pulse Ox 01/07/19 11:11 98.1 F 58 L 135/77 97 01/07/19 07:45 97.7 F 60 16 127/78 97 01/07/19 03:15 97.7 F 65 18 103/68 97 01/07/19 00:15 65 01/06/19 23:48 97.7 F 58 L 16 118/81 95 01/06/19 19:52 98.1 F 74 19 131/78 96 01/06/19 16:43 68 01/06/19 15:17 97.3 F L 63 18 114/77 100 Cardiovascular RRR, no murmur, no edema Respiratory normal respiratory effort, lungs clear to auscultation Pre-Sedation Airway Assessment Smoking Status: Former smoker Hx Sleep Apnea: Yes Hx Difficult Intubation: No Short, Thick Neck: No Thyromental Distance: > or= 3.5 Finger Breadths Oral Cavity: + WNL Mallampati Class: II ASA: ASA2 NPO Status Date of Last Intake of Fluids: 01/06/19 Time of Last Intake of Fluids: 18:00 Date of Last Intake of Solid Food: 01/06/19 Time of Last Intake of Solid Foods: 18:00 Procedure Planning Contraindications for Sedation: none Current Medications Reviewed: Yes Notes The planned sedation has been discussed with the patient. Informed Consent was obtained. I have identified the patient, determined the appropriateness of sedation and have assessed the patient immediately prior to the procedure. All medicine(s) and interventions are by my order.
--- NOTE | 2019-01-07 12:44 | Post Anesthesia Assessment ---
Date of Service January 07, 2019 Post Sedation Assessment Vital Signs Temp Pulse Pulse Resp BP Pulse Ox 01/07/19 11:11 98.1 F 58 L 135/77 97 01/07/19 07:45 97.7 F 60 16 127/78 97 01/07/19 03:15 97.7 F 65 18 103/68 97 01/07/19 00:15 65 01/06/19 23:48 97.7 F 58 L 16 118/81 95 01/06/19 19:52 98.1 F 74 19 131/78 96 01/06/19 16:43 68 01/06/19 15:17 97.3 F L 63 18 114/77 100 Recovery Score Activity: Moves 4 extremities Respiration: Deep Breath/Cough Circulation: +/-20% PreAnes Value Consciousness: Fully Awake Oxygen Saturation: O2 needed for >90% Discharge Sedation Level of Care: Fast Track Phase II Post Sedation Plan On clinical assessment, the patient appears to have tolerated the sedation without complications. Patient is recovering as anticipated. Patient will continue to be monitored by nursing and may be discharged when sedation discharge criteria are met per below protocol. Upon Completions of procedure up to 15 minutes continue every 5 minute vital signs and the P.A.R. score; then discharge to a Phase I or Fast Track to Phase II per the following guidelines: * Discharge Patient to appropriate Phase II area if PAR is 8 or greater or return to pre- procedure baseline. The post - procedure orders will be as directed. * If PAR score is less than 8 or not return to pre-procedure baseline then patient will follow Phase I monitoring till PAR is reached for Phase II. The Phase I may be done in procedure room or may call to secure a Phase I area. * If naloxone or flumazenil are used for reversal, hold in Phase I for continue d monitoring from when last reversal dose was given for a minimum of 60 minutes or longer pending the nurse and/or physician discretion of patient condition before discharge to Phase II. Please call the Sedation Physician to re-evaluate and complete post-note for discharge to Phase II area. Do NOT discharge from procedure sedation or Phase 1 until post- sedation evaluation note is complete by procedure /sedation MD Sedation Discharge Instructions to be given to the patient at discharge to home.
--- NOTE | 2019-01-07 12:49 | Cardiac Catheterization ---
ACC Data: Organisation And Methods Analyst Cardiac Status Clinical evaluation leading to the procedure CAD Presenation: Unstable angina Anginal Classification: CCS III Heart Failure: No Cardiogenic Shock within 24 Hours: No Cardiac Arrest within 24 Hours: No Imaging Studies Past 6 Months: Yes Stress Studies Past 6 Months: Yes Stress Echocardiogram: Yes - Negative Diagnostic Physicians Name: Alexandre Finney MD Status: Elective Closure Device Percutaneous Entry Location: Radial Closure Device: Radial Band Recommendations: Medical Therapy and/or Counseling Intraprocedure Events Significant Disection: No Perforation: No Cardiac Cath Procedure Full Procedure Date January 07, 2019 Pre-Procedure Diagnosis Pre-Procedure Diagnosis: Cardiothoracic Symptom (exertional chest burning discomfort) AUC Score AUC Score: 7 Post-Procedure Diagnosis Post-Procedure Diagnosis: Normal Coronary Arteries Procedure(s) Performed Procedure(s) Performed: Coronary Angiography and Left Heart Cath Behavioral Instructor Alexandre Finney MD Flight Manager(s) Harman Estimated Blood Loss Estimated Blood Loss: 5 Medication(s) Medication(s): Fentanyl, Heparin, Lidocaine 1%, Nicardipine, Nitroglycerin and Versed Summary of Findings Indication: Exertional chest symptoms Access: 6 Fr right radial artery slender Catheters: [place] Findings: LM -angiographically normal LAD -angiographically normal Circumflex -angiographically normal RCA -angiographically normal LVEDP -11 Arterial Closure: TR band Summary: 1. Essentially normal coronary arteries 2. Normal intracardiac filling pressure Recommendations: Further evaluation for noncardiac causes of patient's chest symptoms Continued ASCVD risk factor modification Hemodynamics Rest Ao:: 144/87/112 Final Ao: 143/79/131 LV: 141/11 Recommendations Recommendations: Medical Therapy and/or Counseling Specimens Specimens: None Radiation Exposure (mGy) 1031 Contrast (mls) 45 Fluids (cc crystalloids) Fluids (cc crystalloids): 45 Drains Drains: None Anesthesia Moderate Procedural Complication(s) None Disposition PCU I attest to the content of the Intraoperative Record and any orders documented therein. Any exceptions are noted below.
[2019-01-07] MEDS ORDERED: SODIUM CHLORIDE 0.9% 1000ML 1,000 ML IV SCH (13:00)
--- NOTE | 2019-01-07 14:02 | Cardiology Progress Note ---
Date of Service January 07, 2019 Assessment & Plan (1) Epigastric burning sensation: 2. Ulcerative colitis post colectomy 3. GERD 4. Family history of premature coronary disease 5. Prior tobacco abuse No significant disease on cardiac catheterization today. Feel patient's presenting symptoms are noncardiac. Discussed findings with patient and . From a cardiac standpoint going forward she is okay to resume all regular exercise. Continue ASCVD risk factor modification. Subjective No recurrent chest symptoms overnight. Post cardiac catheterization this afternoon. Normal coronary arteries. Review of Systems Review of Systems: All systems reviewed & are unremarkable except as noted in HPI & below Physical Exam Physical Exam: General: Comfortable, no acute distress HEENT: Sclerae anicteric, mucous membranes moist Lungs: Clear to auscultation bilaterally, no rhonchi or wheezes Cardiac: Regular rate and rhythm, no murmurs. Abdomen: Soft, nontender, ostomy in place Extremities: Warm, well perfused, no edema. TR band in place of right radial artery Skin: No rashes or lesions. Neuro: Nonfocal Psych: Alert orient x3, normal affect and mood Results & Data Vital Signs (Past 12 Hours) Vital Signs Temp Pulse Resp BP Pulse Ox 01/07/19 13:35 55 L 16 138/82 96 01/07/19 13:20 98.4 F 52 L 16 130/73 92 01/07/19 13:05 60 18 130/88 93 01/07/19 12:50 62 18 142/74 H 97 01/07/19 11:11 98.1 F 58 L 135/77 97 01/07/19 07:45 97.7 F 60 16 127/78 97 01/07/19 03:15 97.7 F 65 18 103/68 97 PG Care Time/CCT Total # of Minutes Spent Total Time Spent with Patient: Total time spent is greater than 50% in co ordination of care (as documented) at patient's floor/unit and/or counseling patient:
--- NOTE | 2019-01-07 16:04 | Hospitalist Progress Note ---
Date of Service January 07, 2019 Assessment & Plan (1) Epigastric burning sensation: Epigastric burning sensation for the past 2 weeks/history of GERD/ulcerative colitis- Not improved with Carafate or IV Zantac Barium swallow negative CTA chest negative for PE or other acute issue troponin negative x 4 draws, ACS ruled out ECG is with nonspecific T wave changes Resting echocardiogram normal Stress echocardiogram read as normal but upon discussion with cardiology, apex of heart could not be well visualized due to body habitus most likely -Given exertional symptoms relieved with rest, despite other atypical features- she went on to have cardiac catheterization which was normal This is non-cardiac chest pain -now plans for EGD tomorrow -continue PPI bid, pepcid bid -pt suspects adhesive disease -does tend to perseverate on her symptoms and may have some component of somatization due to underlying stress/anxiety (2) GERD (gastroesophageal reflux disease): continue Protonix BID -Carafate did not help and was dcd -GI started Pepcid 20 mill grams p.o. twice daily (3) Ulcerative colitis: s/p colectomy with ileostomy and has rectal stump would like to change to [facility] ultimately as an outpatient -she was to have rectal stump scope on Sunday of this week due to having rectal bleeding but this was to be done at [facility] -will see if can be done here while has EGD (4) Hypothyroidism: No recent TSH in the system -Continue home levothyroxine 88 mcg daily (5) Anxiety disorder: Patient reports a long history of anxiety which had been under some control but seems to have a lot of issues related to her history of uterine cancer and fear that she will have return of cancer or a return of her previous chronic pain she suffered with for 5 years prior to her colectomy -Current ongoing symptoms are exacerbating her anxiety -Suggest follow-up with outpatient psychology (6) Obesity: BMI 40.7 -She is working on weight loss currently and has recently lost 10 pounds (7) Fatty liver: Noted on CT of the chest -Encouraged continued weight loss -should be followed as outpt with [facility] periodically (8) DVT prophylaxis: SCDs Disposition-remain on telemetry overnight and n.p.o. after midnight for EGD tomorrow Hopefully home tomorrow Subjective Had cardiac cath today which was normal. She denies any further chest burning today but reports she has not exerted herself. She is very fearful that we will NOT find anything wrong with her and that she will end up having chronic pain like she had from [id number] which she believes was due to adhesions and was resolved after her colectomy and TIP. When I mention that her anxiety may be amplifying her symptoms, she becomes upset with my suggestion. She again worries that if she has something wrong with her, that she won't be able to get custody of her grandchildren. Tele with NSR, rates 60s-70s. Review of Systems Review of Systems: All systems reviewed & are unremarkable except as noted in HPI & below Physical Exam Constitutional: WD/WN, vitals as above + morbidly obese Eyes: + anicteric sclerae Neck: trachea midline, no thyromegaly Respiratory: normal respiratory effort, lungs clear to auscultation Cardiovascular: RRR, no murmur, no edema Gastrointestinal (Abdomen): normal bowel sounds, soft, nontender, no hepatosplenomegaly Musculoskeletal: Extremities: extremities normal to inspection; no cyanosis and no clubbing Skin: no rashes, warm and dry Neurologic: moves all extremities and awake; no focal motor deficits Psychiatric: Orientation: alert and oriented x 3 Affect: + anxious affect Mood: + anxious mood Results & Data Vital Signs (Past 12 Hours) Vital Signs Temp Pulse Resp BP Pulse Ox 01/07/19 15:39 36.4 C L 758 H 16 97/62 L 99 01/07/19 14:35 88 16 118/72 96 01/07/19 14:05 64 16 109/58 L 96 01/07/19 13:35 55 L 16 138/82 96 01/07/19 13:20 36.9 C 52 L 16 130/73 92 01/07/19 13:05 60 18 130/88 93 01/07/19 12:50 62 18 142/74 H 97 01/07/19 11:11 36.7 C 58 L 135/77 97 01/07/19 07:45 36.5 C 60 16 127/78 97 PG Care Time/CCT Total # of Minutes Spent Total Time Spent with Patient: Total time spent is greater than 50% in coordination of care (as documented) at patient's floor/unit and/or counseling patient:
[2019-01-08] MEDS: LEVOTHYROXINE SODIUM 88 MCG TABLET PO SCH (05:43)
[2019-01-08 06:52] LABS: Basophils # (auto) 0.02 K/uL (0-0.2); Basophils % (auto) 0.4 %; Eosinophils # (auto) 0.19 K/uL (0-0.5); Eosinophils % (auto) 3.6 %; Hematocrit (blood only) 38.5 % (37-47); Hemoglobin 12.5 g/dL (12.0-16.0); Lymphocytes # (auto) 2.45 K/uL (1.2-3.4); Lymphocytes % (auto) 46.3 %; Mean Corpuscular Hemoglobin 27.9 pg (25-34); Mean Corpuscular Hgb Conc 32.5 g/dL (32-36); Mean Corpuscular Volume 85.9 fL (80-100); Mean Platelet Volume 9.8 fL (7.4-10.4); Monocytes # (auto) 0.53 K/uL (0.11-0.59); Neutrophils % (auto) 39.7 %; Platelet Count 234 K/uL (130-400); RDW Coefficient of Variation 14.1 % (11.5-14.5); RDW Standard Deviation 44.4 fL (36.4-46.3); Red Blood Count 4.48 M/uL (4.2-5.4); White Blood Count 5.29 K/uL (4.8-10.8)
[2019-01-08 07:23] LABS: Calcium 8.9 mg/dl (8.5-10.1); Est GFR (African American) 68.2; Est GFR (Non-African American) 58.9; Potassium 4.1 mmol/L (3.5-5.1)
[2019-01-08 07:34] LABS: Thyroid Stimulating Hormone 3.47 uIu/ml (0.300-4.500)
[2019-01-08] MEDS: FAMOTIDINE 20 MG TAB PO SCH (08:38)
[2019-01-08] MEDS: PANTOprazole 40 MG TAB PO SCH (08:38)
--- NOTE | 2019-01-08 09:17 | Gastroenterology Progress Note ---
Date of Service January 08, 2019 Assessment & Plan (1) Epigastric burning sensation: -Keep NPO & Proceed with EGD today for further evaluation -Continue BID PPI therapy Present on Admission?: Yes (2) Ulcerative colitis: No outpatient records from her GI or colorectal surgeon are available within the system. She reports a history of a near total colectomy with a rectal stump remaining. She reports she is to discuss with her colorectal surgeon having the stump removed as she reports she never wants a J pouch and has active disease in the rectum. -Proceed with outpatient colorectal evaluation Present on Admission?: Yes Supervising Physician Co-Signing Physician Notes Agree with GUS Hatch as above Abd: Soft, NT, ND Continue current therapy Proceed with EGD today Subjective Patient is a 48 yo female with atypical chest pain. She has not had food or drink since prior to midnight. She is scheduled for an EGD today for further evaluation. She has had no improvement on Carafate, H2 blockers, & high dose PPI therapy. Cardiac work-up is fortunately normal. She is asymptomatic at the moment while resting in bed, but notes that as soon as she exerts herself, she has chest pain. She had an unremarkable barium swallow that did not even identify acid reflux. Review of Systems Respiratory: no cough and no dyspnea Cardiovascular: no chest pain Additional Comments: Chest pain on exertion only Gastrointestinal: + abdominal pain (epigastric pain with exertion) Psychiatric: + anxiety Physical Exam Constitutional: WD/WN, vitals as above Respiratory: normal respiratory effort, lungs clear to auscultation Cardiovascular: RRR, no murmur, no edema Gastrointestinal (Abdomen): normal bowel sounds, soft, nontender, no hepato splenomegaly Psychiatric: Orientation: alert and oriented x 3 Affect: + anxious affect Results & Data Vital Signs (Past 12 Hours) Vital Signs Temp Pulse Pulse Resp BP Pulse Ox 01/08/19 08:00 56 L 01/08/19 07:40 36.7 C 63 20 130/82 96 01/08/19 02:48 36.3 C L 57 L 18 107/70 98 01/08/19 00:58 68 01/07/19 23:28 36.7 C 62 18 103/71 98 PG Care Time/CCT Total # of Minutes Spent Total Time Spent with Patient: Total time spent is greater than 50% in coordination of care (as documented) at patient's floor/unit and/or counseling patient: (1) Ulcerative colitis Digestive disease complication type: other complication Ulcerative colitis location: unspecified ulcerative colitis location Qualified Code(s): K51.918 - Ulcerative colitis, unspecified with other complication
[2019-01-08] MEDS ORDERED: LIDOCAINE HCL 2% 2 ML VIAL/AMP(20MG/ML) INFIL ONE (11:45)
[2019-01-08] MEDS ORDERED: PROPOFOL IV EMULSION 10 MG/ML 20 ML VIAL IV ONE (11:45)
[2019-01-08] MEDS ORDERED: ATROPINE SULFATE 0.1 MG/ML 10ML SYR IV PRN ×2 (12:26→12:29)
[2019-01-08] MEDS ORDERED: ePHEDrine sulfate 50 MG/ML AMP IV PRN ×2 (12:26→12:29)
--- NOTE | 2019-01-08 12:26 | Anesthesiology Consultation ---
Date of Service January 08, 2019 Assessment & Plan (1) Encounter for pre-operative examination: Chart Review Chart Review: Acceptable Risk for Surgery and Patient NOT seen in Pre Admission Testing Consults Requested none History Surgery Operation Date: 01/07/19 12:00 Proposed Procedures p Cardiac Cath Procedure - Cali Finney MD Operation Date: 01/08/19 12:20 Proposed Procedures p Esophagogastroduodenoscopy Dr Davis - Gal Davis, DO Height/Weight Height: 5 ft 6 in Weight: 128.1 kg Allergies Allergy/AdvReac Type Severity Reaction Status Date / Time clavulanic acid Allergy Severe TONGUE Verified 01/04/19 20:33 SWELLS Penicillins Allergy Severe TONGUE Verified 01/04/19 20:33 SWELLS prednisone Allergy Severe HAIR FALLS Verified 01/04/19 20:33 OUT infliximab [From Remicade] Allergy Intermediate Hives Verified 01/04/19 20:33 adalimumab AdvReac Severe Drug Verified 01/04/19 20:33 induced Lupus mercaptopurine AdvReac Unknown Elevated Verified 01/04/19 20:33 liver enzymes methotrexate AdvReac Unknown Elevated Verified 01/04/19 20:33 liver enzymes vedolizumab [From Entyvio] AdvReac Unknown Drug Verified 01/04/19 20:33 induced Lupus BETALACTAMASEIN Allergy Severe TONGUE Uncoded 01/04/19 20:33 SWELLS Medications Home Medications Medication Instructions Recorded Confirmed Last Taken coconut oil 2,000 mg PO QAM 01/04/19 01/04/19 Unknown difluprednate [Durezol] 1 drp OPB Q2D 01/04/19 01/04/19 Unknown hydroxychloroquine 200 mg PO BID 01/04/19 01/04/19 Unknown levothyroxine 88 mcg PO QAM 01/04/19 01/04/19 Unknown pantoprazole 40 mg PO BID 01/04/19 01/04/19 Unknown sucralfate 1 g PO ACHS 01/04/19 01/04/19 Unknown turmeric-turmeric ext-pepper 500 mg PO DAILY 01/04/19 01/04/19 Unknown Active Medications Generic Name Dose Route Start Last Admin Trade Name Freq PRN Reason Stop Dose Admin Famotidine 20 mg 01/06/19 10:00 01/08/19 08:38 Pepcid PO 02/05/19 09:59 20 mg BID HERMINIO Administration Ioversol 119 ml 01/04/19 19:41 01/04/19 19:45 Optiray 320 125ml IV 01/08/19 19:40 119 ml ONCE PRN Administration Interaction Checking Levothyroxine Sodium 88 mcg 01/05/19 06:30 01/08/19 05:43 Synthroid PO 02/04/19 06:29 88 mcg DAILYBB HERMINIO Administration Pantoprazole Sodium 40 mg 01/04/19 23:24 01/08/19 08:38 Protonix PO 02/03/19 23:23 40 mg BID HERMINIO Administration NPO Date Last Intake of Fluids: 01/08/19 Time Last Intake of Fluids: 09:00 Date Last Intake of Solids: 01/07/19 Time Last Intake of Solids: 18:00 Past Medical History Medical History Anxiety disorder Fatty liver GERD (gastroesophageal reflux disease) Hypothyroidism (Chronic) Irritable bowel (Chronic) Obesity Ulcerative colitis (Chronic) Uterine cancer (Resolved) Past Surgical History Surgical History H/O: hysterectomy (Chronic) History of cholecystectomy Social History Smoking Status: Former smoker Do You Dip or Chew Tobacco: No Hx Alcohol Use: No Hx Substance Use: No substance use type: does not use Physical Exam Vital Signs Last Vital Signs Temp 36.5 C 01/08/19 12:11 Pulse 60 01/08/19 12:11 Resp 16 01/08/19 12:11 BP 136/76 01/08/19 12:11 Pulse Ox 96 01/08/19 12:11 Testing Laboratory Results 01/08/19 06:42 01/08/19 06:42 Urine Color Yellow 01/04/19 18:26 Urine Appearance Slightly Cloudy (Clear) 01/04/19 18:26 Urine pH 5.5 (4.5-7.5) 01/04/19 18:26 Ur Specific [place] >= 1.030 (1.000-1.030) 01/04/19 18:26 Urine Protein Trace (Negative) H 01/04/19 18:26 Urine Glucose (UA) Negative (Negative) 01/04/19 18:26 Urine Ketones Negative (Negative) 01/04/19 18:26 Urine Nitrite Negative (Negative) 01/04/19 18:26 Ur Leukocyte Esterase Trace (Negative) H 01/04/19 18:26 Urine RBC 5-10 /hpf (0-4) H 01/04/19 18:26 Urine WBC >30 /hpf (0-5) H 01/04/19 18:26 Ur Epithelial Cells 20-30 /lpf (0-5) H 01/04/19 18:26 01/04/19 18:26 Urine Culture - Final Urine,Clean Catch More than three types of organisms present, all moderate counts mixed probable skin rosanna. No further identifications or sensitivities to follow.
[2019-01-08] MEDS ORDERED: MIDAZOLAM HCL 1 MG/ML 2ML VIAL ONE (12:33)
--- NOTE | 2019-01-08 12:57 | GI REPORT ---
Patient Name: Pati Emmanuel Procedure Date: 01/08/2019 12:49 PM Date of : 1970 Admit Type: Inpatient Age: 48 Gender: Female Attending MD: Gal Davis DO Procedure: Upper GI endoscopy Providers: Gal Davis DO Referring MD: Carissa Knox Md Indications: Chest pain (non cardiac) Medicines: Monitored Anesthesia Care Complications: No immediate complications. Estimated Blood Loss: Estimated blood loss: none. Procedure: Pre-Anesthesia Assessment: - Prior to the procedure, a History and Physical was performed, and patient medications and allergies were reviewed. The patient's tolerance of previous anesthesia was also reviewed. The risks and benefits of the procedure and the sedation options and risks were discussed with the patient. All questions were answered, and informed consent was obtained. Prior Anticoagulants: The patient has taken no previous anticoagulant or antiplatelet agents. ASA Grade Assessment: III - A patient with severe systemic disease. After reviewing the risks and benefits, the patient was deemed in satisfactory condition to undergo the procedure. After obtaining informed consent, the endoscope was passed under direct vision. Throughout the procedure, the patient's blood pressure, pulse, and oxygen saturations were monitored continuously. The Scope was introduced through the mouth, and advanced to the second part of duodenum. The upper GI endoscopy was accomplished without difficulty. The patient tolerated the procedure well. Findings: The esophagus was normal. A small hiatal hernia was present. Localized mild inflammation characterized by erythema was found in the gastric antrum. Biopsies were taken with a cold forceps for histology. The examined duodenum was normal. Impression: - Normal esophagus. - Small hiatal hernia. - Gastritis. Biopsied. - Normal examined duodenum. Recommendation: - Resume previous diet. - Continue present medications. - Await pathology results. - Return to primary care physician as previously scheduled. Gal Davis DO 01/08/2019 12:57:30 PM This report has been signed electronically. Note Initiated On: 01/08/2019 12:49 PM Number of Addenda: 0 I attest to the content of the Intraoperative Record and orders documented therein, exceptions below {[id number]}
--- NOTE | 2019-01-08 14:45 | Discharge Summary ---
Date of Service January 08, 2019 Admission HPI Per Admitting Provider The patient is a 48-year-old female with a past medical history including arthritis, hypothyroidism, GERD, and gastritis who presents to the emergency department with worsening epigastric burning for the past 2 weeks. She recently had addition of sucralfate 4 times daily to her usual pantoprazole 40 mg twice daily, and reports no significant improvement. She denies any recent change in dietary intake for either solids or liquids. She denies any recent travels or sick exposures. Made medication changes, upon review of her list, are as noted above the addition of Carafate, and she was also started on hydroxychloroquine about 4 months ago. Principal Diagnosis Epigastric pain, gastritis Discharge Exam Constitutional WD/WN, vitals as above + morbidly obese Eyes + anicteric sclerae ENMT external ear and nose normal, oropharynx normal Neck trachea midline, no thyromegaly Respiratory normal respiratory effort, lungs clear to auscultation Cardiovascular RRR, no murmur, no edema Gastrointestinal (Abdomen) normal bowel sounds, soft, nontender, no hepatosplenomegaly Musculoskeletal Extremities: extremities normal to inspection; no cyanosis and no clubbing Skin no rashes, warm and dry Neurologic moves all extremities and awake; no focal motor deficits Psychiatric Orientation: alert and oriented x 3 Affect: + anxious affect Mood: + anxious mood Discharge Data Allergies Allergy/AdvReac Type Severity Reaction Status Date / Time clavulanic acid Allergy Severe TONGUE Verified 01/04/19 20:33 SWELLS Penicillins Allergy Severe TONGUE Verified 01/04/19 20:33 SWELLS prednisone Allergy Severe HAIR FALLS Verified 01/04/19 20:33 OUT infliximab [From Remicade] Allergy Intermediate Hives Verified 01/04/19 20:33 adalimumab AdvReac Severe Drug Verified 01/04/19 20:33 induced Lupus mercaptopurine AdvReac Unknown Elevated Verified 01/04/19 20:33 liver enzymes methotrexate AdvReac Unknown Elevated Verified 01/04/19 20:33 liver enzymes vedolizumab [From Entyvio] AdvReac Unknown Drug Verified 01/04/19 20:33 induced Lupus BETALACTAMASEIN Allergy Severe TONGUE Uncoded 01/04/19 20:33 SWELLS Consultations 01/04/19 21:21 ED Decision to Admit Stat 01/04/19 23:24 Consult Case Management - Discharge Planning Routine 01/05/19 09:24 Consult Gastroenterology Routine 01/06/19 16:06 Consult Cardiology Routine Procedures Performed Operation Date: 01/07/19 12:00 Actual Procedures p Cath, Left with Cors and Vent - Cali Finney MD s Cineradiography w/Routine Exam - Cali Finney MD Operation Date: 01/08/19 12:20 Actual Procedures p EGD Biopsy Cytology - Gal De La Cruz Case, DO Ordered Studies 01/04/19 19:14 CT angio chest PE protocol Stat 01/06/19 11:30 FL barium swallow Routine 01/07/19 06:55 CL Cath Imgs for PACS use only Routine CXR Echcoardiogram Stress Echocardiogram Hospital Course (1) Epigastric burning sensation: Epigastric burning sensation for the past 2 weeks/history of GERD/ulcerative colitis- Not improved with Carafate or IV Zantac Is already on Protonix as outpt Barium swallow negative CTA chest negative for PE or other acute issue troponin negative x 4 draws, ACS ruled out ECG is with nonspecific T wave changes Resting echocardiogram normal Stress echocardiogram read as normal but upon discussion with cardiology, apex of heart could not be well visualized due to body habitus most likely -Given exertional symptoms relieved with rest, despite other atypical features- she went on to have cardiac catheterization which was normal EGD with small area of gastritis which was biopsied. Pt continued to describe the symptoms only as exertional, however when she was anxious, she would also say the symptoms would come on at rest. However, she denied that this was related to anxiety. This is non-cardiac chest pain -continue PPI bid, pepcid bid -pt suspects adhesive disease, but does not seem consistent with that given location -pt also questions if was from the Plaquenil she started a few months ago-she has since stopped it last week and is feeling better now-she will discuss with her Equipment Engineering Technician -likely from gastritis, stress, anxiety -does tend to perseverate on her symptoms and may have some component of somatization due to underlying stress/anxiety -f/u on patholgy of biopsy after discharge -f/u GI after discharge (2) GERD (gastroesophageal reflux disease): continue Protonix BID -Carafate did not help and was dcd -GI started Pepcid 20 mill grams p.o. twice daily (3) Ulcerative colitis: s/p colectomy with ileostomy and has rectal stump would like to change to [facility] gastroenterology ultimately as an outpatient -she was to have rectal stump scope on Sunday of this week due to having rectal bleeding but this was to be done at [facility] -she has rescheduled her endoscopy as an outpt and will f/u with GI (4) Hypothyroidism: TSH here is normal at 3.47 -Continue home levothyroxine 88 mcg daily (5) Anxiety disorder: Patient reports a long history of anxiety which had been under some control but seems to have a lot of issues related to her history of uterine cancer and fear that she will have return of cancer or a return of her previous chronic pain she suffered with for 5 years prior to her colectomy -Current ongoing symptoms are exacerbating her anxiety -Suggest follow-up with outpatient psychology (6) Obesity: BMI 40.7 -She is working on weight loss currently and has recently lost 10 pounds (7) Fatty liver: Noted on CT of the chest -Encouraged continued weight loss -should be followed as outpt with LFTs periodically (8) DVT prophylaxis: SCDs Disposition-stable for dc to home today Total Time Total Time Spent Total Time Spent (In Minutes): 35 min Total Time Includes: Examination of the Patient, Discharge Planning and Medication Reconciliation Discharge Plan Discharge Items Patient Disposition: Home - Self-Care Reason For Visit: CHEST PAIN Discharge Diagnosis: Acute gastritis Condition on Discharge: Good Goals: You have been hospitalized for an acute medical problem. During your stay at [facility], we have made an effort to correct the problem that brought you to the hospital while keeping you as comfortable as possible. Medications were used to bring your condition under control and your discharge instructions will include directions for any medications you should take after leaving the hospital. Please make sure you see your Primary Care Provider as part of your follow up plan. Activity: Resume your previous activity Bathing: No limitations Non-emergency contact: Primary Care Provider and Mixer Blender Call non-emergency contact if: you have any medication questions, your symptoms worsen, your pain is not controlled, your pain is worsening, your pain is unusual for you and your pain is concerning for you Follow-up/Referrals: Giovana Herrera CRNP [Nurse Practitioner] - 01/15/19 10:40 am (A follow up appt. has been made for you with MIGUEL Cueva on 01/15 at 10:40am.) Merlene Gray MD [Primary Care Provider] - 01/14/19 11:05 am (A follow up appt. has been for you with Dr. Marti Potter on January 14 at 11:05am.) Diet: Regular Addtl Attending Provider Instructions: You were admitted with chest and upper abdominal pain and had an extensive work- up to include a cardiac catheterization, multiple imaging studies, and an upper endoscopy. He did have a small area of gastritis which is inflammation of the stomach. Please discuss further treatment of this with your breakfast cook as an outpatient. As you suggested, perhaps this was all from a side effect of your hydroxychloroquine and now that you have stopped that, hopefully your symptoms will improve. You can take Pepcid 20 mg twice a day on top of your Protonix and Carafate for at least 2 weeks for your gastritis. It is important for you to follow-up with your video photographer and let them know that you did discontinue your hydroxychloroquine. Please follow-up with your primary care physician and gastroenterology as scheduled for you. Pending Studies at Discharge: No Stand-Alone Forms: My [facility] Medications and DC Order Prescriptions: New famotidine 20 mg Tablet 20 mg PO BID Qty: 60 RF: 0 Continued sucralfate 1 gram tablet 1 g PO ACHS RF: 0 levothyroxine 88 mcg tablet 88 mcg PO QAM RF: 0 pantoprazole 40 mg tablet,delayed release (DR/EC) 40 mg PO BID RF: 0 Durezol 0.05 % drops 1 drp OPB Q2D RF: 0 coconut oil 1,000 mg Capsule 2,000 mg PO QAM RF: 0 turmeric-turmeric ext-pepper 500-3 mg Capsule 500 mg PO DAILY RF: 0 Discontinued hydroxychloroquine 200 mg tablet 200 mg PO BID RF: 0 Discharge Orders: Discharge Order (Routine); Ordered 01/08/19 Ordered By: Carissa Knox Admission Data Admit Date/Time: 01/05/19 09:38 Attending Provider: Carissa Knox Admit Provider: Tavon Quiñones Primary Care Provider: Merlene Gray Other Providers: Tavon Quiñones ; Gal Davis ; Cali Finney Other Interventions: Discharge Summary Assessment (RN) Last Done: 01/08/19 15:19 DC Date/Time DO NOT enter until pt leaves facility: 01/08/19 15:42
[2019-01-08 15:26] VITALS: BP 129/89; PULSE 64; TEMP 97.9; O2SAT 99
--- NOTE | 2019-01-21 09:16 | Anesthesiology Progress Note ---
Date of Service January 21, 2019 Anesthesia Post Procedure Transfer of Care Handoff Completed per policy Notes Mental Status: alert / awake / arousable Patient Amnestic to Procedure: Yes Nausea / Vomiting: adequately controlled Pain: adequately controlled Airway Patency, RR, SpO2: stable & adequate BP & HR: stable & adequate Hydration State: stable & adequate Anesthetic Complications: no major complications apparent and Pt Satisfied with anesthetic care
== END 2019-01-08 15:42 | disposition home or self-care (01) | DRG 287 ==
LOC: 2S 17:10 → ED 17:10 → SUATTDRO 22:46 → 2S 23:07 → SUATTDRO 01-05 09:38

== ENCOUNTER 2024-09-23 02:31 | Inpatient (IN) ==
[2024-09-23] MEDS: ACETAMINOPHEN 1,000 MG/100 ML VIAL IV STA (03:12)
[2024-09-23] MEDS: MoRPHine SULFATE 4 MG/ML 1 ML CARP\\VIAL IV STA ×3 (03:12→07:59)
[2024-09-23] MEDS: CYCLOBENZAPRINE HCL 10 MG TAB PO STA (03:12)
[2024-09-23] MEDS: SODIUM CHLORIDE 0.9% 1,000 ML IV SCH (03:12)
[2024-09-23] MEDS: GABAPENTIN 100 MG CAP PO STA (03:31)
--- NOTE | 2024-09-23 03:34 | Emergency Department Note ---
Impression & Plan Neck pain, Paresthesia of left arm, Cervical disc herniation ED Provider Note ED Provider Note NAME: BJORN MCELROY AGE:54 SEX: Female : 1970 ARRIVES VIA: private vehicle INFORMANT: Patient ED PROVIDER(s): Dee Tran DO CHIEF COMPLAINT: Neck pain, left arm pain and numbness HPI: This is a 54-year-old female who presents to the emergency department due to concern for worsening neck pain now radiating to the left arm with accompanying left arm and hand numbness. Patient states she "slept wrong" the middle of last week and woke up with some neck pain. She states over the weekend they were camping and her grandson went to give her a hug and hung off of her neck and since that time the pain has been worse and began radiating into the left arm. She states she then began develop numbness in the left arm down through the fingers as well. She states she has had difficulty sleeping and cannot find a comfortable position. She states her neck and arm feel worse with movement. No prior history of neck problems but she states she does have a previous diagnosis of ankylosing spondylitis and has low back pain. She states she also has osteoarthritis. She states she did see her PCP yesterday and was started on meloxicam and given Flexeril. She states she has been taking them as well as applying IcyHot patches and has not had any improvement. PAST MEDICAL HISTORY:See Below PAST SURGICAL HISTORY:See Below FAMILY HISTORY:See Below SOCIAL HISTORY:See Below HOME MEDICATIONS:See Below ALLERGIES:See Below VITALS:See Below PHYSICAL EXAMINATION: GENERAL: alert, well appearing, well nourished, no distress, non-toxic EYE EXAM: normal conjunctiva, PERRL and EOM's grossly intact OROPHARYNX: no exudate, no erythema, lips, buccal mucosa, and tongue normal and mucous membranes are moist NECK: supple, no nuchal rigidity, no adenopathy, mild pain with palpation along the inferior midline of the neck, pain with turning the head LUNGS: Clear to auscultation. Normal chest wall mechanics, no w/r/r HEART: no murmurs, S1 normal and S2 normal ABDOMEN: abdomen soft, non-tender, normo-active bowel sounds, no masses, no rebound or guarding. BACK: Back is symmetrical on inspection and there is no deformity, no midline tenderness, no CVA tenderness. SKIN: no rashes, petechiae, orbruising UPPER EXTREMITIES: upper extremities are grossly normal. FROM, nml pulses b/l. Subjective sensory difference to light touch in the left upper extremity. No evidence of trauma/deformity. LOWER EXTREMITIES: No pitting edema. FROM, nml pulses b/l. NEURO EXAM: Normal sensorium, cranial nerves II-XII grossly intact, normal speech, no facial droop,nogross weakness of arms, no gross weakness of legs. Gross sensation intact. No ataxia. Vital Signs: reviewed and remarkable Differential Diagnosis: Musculoskeletal strain, cervical radiculopathy, tension headache, brachial plexus injury, osteoarthritis, as well as others were considered MEDICAL DECISION MAKING: This is a 54-year-old female who presents emerged part due to concern for worsening neck pain and left upper extremity pain with accompanying paresthesias. She was afebrile and hemodynamically stable. After evaluation at bedside, labs drawn and sent, IV established, patient monitored on telemetry. Patient was sent for CT of the cervical spine additionally. She was given IV Tylenol, IV Toradol, oral gabapentin, and oral Flexeril. She reported no improvement. She was given IV morphine additionally with some improvement of her pain. While waiting her CT, pain began after and she was given an additional dose of IV morphine. Patient given oral oxycodone and attempt to transition over to oral medications. I discussed the CT read and examination findings with the on-call international marketing specialist who felt patient could be followed up in the office as an outpatient. Patient continued to complain of pain when IV meds were added and we discussed additional inpatient management until her pain is under better control. Case discussed with the hospitalist team for additional evaluation and monitoring. Consultation(s): 0532: Discussed with Dr. Cortes. 0725: Discussed with Dr. Choudhary, [facility] hospitalist team for additional evaluation and mgmt. ER Treatment Provided: See below 0435: Patient updated on CT results. She states she is still having pain. She states she cannot take steroids as they make her bradycardic as she was on them for many years due to her ulcerative colitis. 0715: Patient states mild improvement in neck pain however left shoulder/arm pain is worse and paresthesias are persistent. Diagnostics Interpreted By Me: -ECG: sinus bradycardia at 49, nml axis, nml intervals, no acute ST/T wave changes -Cardiac Monitoring: An order was placed for continuous cardiac monitoring. The monitor shows a rate of 62 with normal sinus rhythm. -Laboratory studies: As stated above and show below. -Imaging studies: ct cervical spine: disc herniation noted Triage Nursing Note Reviewed Prior/Outside Records Reviewed Past Med/Surg History Problem List (Updated 09/23/24 @ 04:41 by Dee Tran, DO) Cervical disc herniation (Acute) Paresthesia of left arm (Acute) Neck pain (Acute) Ventral hernia Pertussis exposure History of uterine cancer 2008 - treated surgically Osteoarthritis Dysesthesia of multiple sites Cervical radiculopathy Palpitation Diastolic dysfunction Hypothyroidism (Chronic) GERD (gastroesophageal reflux disease) Vitamin D deficiency Obstructive sleep apnea Anxiety and depression Ankylosing spondylitis of site in spine Normal c-spine ROM Hypertriglyceridemia Prediabetes Fatty liver Obesity Irritable bowel (Chronic) Ulcerative colitis (Chronic) Medical History 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 Patient has had lingering cough, fatigue. CXR ordered by PCP 07/29/20 WNL, no active disease. Scheduled to have PFTs 09/2020. Hypothyroidism TMJ click Bradycardia Sleep apnea Has not used CPAP machine due to lack of insurance coverage (she reports already having $500 worth of expense for colostomy supplies) Surgical History History of skin graft History of total abdominal hysterectomy and bilateral salpingo-oophorectomy History of cardiac cath Status post colostomy H/O colectomy History of appendectomy History of cholecystectomy (12/2017) Family History Mother PVD (peripheral vascular disease) COPD (chronic obstructive pulmonary disease) Stroke Father Diabetes Brother Coronary heart disease Myocardial infarction Brother Skin cancer Brother Congenital heart disease Other No family history of adverse response to anesthesia Denies family history of Ovarian cancer Prostate cancer Breast cancer Colorectal cancer Social History Smoking Status: Never smoker Tobacco Type: Cigarettes Age Started Using Tobacco: 16; Age Quit Using Tobacco: 28; packs per day: 0.5; Second Hand Exposure: Yes (as a child); Do You Dip or Chew Tobacco: No; Hx Alcohol Use: No Hx Substance Use: No Preferred Language: Omani Communication Ability: Effective Visual Impairment: Limited Hearing Ability: Normal Smoke Tester Required: No Beliefs That Will Affect Care: None marital status: Current Living Situation: Spouse Current Living Situation Comment: spouse, 2 grandchildren (in process of adopting) current occupational status: disabled How many Children do You have: 4 Feels Safe at Home: Yes Childhood Exposure to Second-Hand Smoke: Yes Diet: regular caffeine: No during the past year weight has: remained stable Dental Care, Regularly: No Physical Activity Frequency: Daily Seatbelt Use: always Sunscreen Use: No Assistive Devices: None Allergies Allergies Allergy/AdvReac Type Severity Reaction Status Date / Time adalimumab [From Humira] Allergy Severe Unknown Verified 09/22/24 08:43 amoxicillin [From Augmentin] Allergy Severe Unknown Verified 09/22/24 08:43 clavulanic acid Allergy Severe Unknown Verified 09/22/24 08:43 infliximab Allergy Severe Unknown Verified 09/22/24 08:43 mercaptopurine Allergy Severe Unknown Verified 09/22/24 08:43 methotrexate Allergy Severe Unknown Verified 09/22/24 08:43 vedolizumab Allergy Severe Unknown Verified 09/22/24 08:43 BETALACTAMASEIN Allergy Mild Unknown Uncoded 09/22/24 08:43 steriods AdvReac Unknown Uncoded 09/22/24 08:43 Home Meds Home Medications Medication Instructions Recorded Confirmed turmeric 500 mg-black pepper 500 mg PO QAM 01/04/19 09/23/24 extract 3 mg capsule cholecalciferol (vitamin D3) 5,000 unit PO QAM 03/05/20 09/23/24 ascorbic acid (vitamin C) 1 tab PO DAILY 05/31/22 09/23/24 milk thistle 1 cap PO DAILY 05/31/22 09/23/24 clotrimazole-betamethasone 1 1 applic topical BID PRN skin 01/29/24 09/23/24 %-0.05 % topical cream irritation triamcinolone acetonide 0.1 % 1 applic topical BID PRN Other 09/22/24 09/23/24 topical cream cyclobenzaprine 10 mg tablet 0 mg PO TID PRN muscle spasm 09/23/24 09/23/24 pantoprazole 40 mg tablet,delayed 0 mg PO QAM 09/23/24 09/23/24 release Previous Rx's Medication Instructions Recorded levothyroxine 125 mcg tablet 125 mcg PO DAILY #90 tabs 10/10/23 cetirizine 10 mg tablet 10 mg PO DAILY PRN allergy 03/21/24 symptoms #90 tabs meloxicam 15 mg tablet 15 mg PO DAILY PRN pain #30 tabs 09/22/24 Results & Data (ED) Vital Signs Vital Signs - 24 hr 09/23/24 02:37 09/23/24 03:09 09/23/24 03:17 Temperature 37.0 C Temperature Source Temporal Artery Scan Pulse Rate 73 64 69 Pulse Rate [Apical] Respiratory Rate 17 20 Respiratory Effort / Characteristics Non-Labored Respiratory Depth Normal Respiratory Pattern Regular Blood Pressure 194/105 H 184/123 H Blood Pressure [Right Arm] Blood Pressure Mean 134 144 Blood Pressure Mean [Right Arm] Pulse Oximetry 99 99 Oxygen Delivery Method Room Air Room Air Sepsis Recent Fever Within 48 Hours No Sepsis New/Unexplained Change in Mental Status N/A Sepsis Action Taken by Nursing No Action Required 09/23/24 04:00 09/23/24 04:31 09/23/24 05:01 Temperature Temperature Source Pulse Rate 68 64 70 Pulse Rate [Apical] Respiratory Rate 14 14 15 Respiratory Effort / Characteristics Respiratory Depth Respiratory Pattern Blood Pressure 133/84 155/93 H 152/81 H Blood Pressure [Right Arm] Blood Pressure Mean 100 115 96 Blood Pressure Mean [Right Arm] Pulse Oximetry 96 97 99 Oxygen Delivery Method Room Air Room Air Room Air Sepsis Recent Fever Within 48 Hours Sepsis New/Unexplained Change in Mental Status Sepsis Action Taken by Nursing 09/23/24 05:30 09/23/24 06:00 09/23/24 07:53 Temperature Temperature Source Pulse Rate 61 57 L Pulse Rate [Apical] 63 Respiratory Rate 13 14 15 Respiratory Effort / Characteristics Respiratory Depth Respiratory Pattern Blood Pressure 148/79 H 120/77 Blood Pressure [Right Arm] 125/75 Blood Pressure Mean 102 97 Blood Pressure Mean [Right Arm] 91 Pulse Oximetry 93 94 96 Oxygen Delivery Method Room Air Room Air Room Air Sepsis Recent Fever Within 48 Hours Sepsis New/Unexplained Change in Mental Status Sepsis Action Taken by Nursing 09/23/24 07:59 Temperature Temperature Source Pulse Rate 53 L Pulse Rate [Apical] Respiratory Rate Respiratory Effort / Characteristics Respiratory Depth Respiratory Pattern Blood Pressure Blood Pressure [Right Arm] Blood Pressure Mean Blood Pressure Mean [Right Arm] Pulse Oximetry Oxygen Delivery Method Sepsis Recent Fever Within 48 Hours Sepsis New/Unexplained Change in Mental Status Sepsis Action Taken by Nursing Laboratory Data 09/23/24 03:15 09/23/24 08:53 Lab Results 09/23/24 Range/Units 03:15 WBC 8.96 (4.8-10.8) K/ul RBC 4.59 (4.20-5.40) M/uL Hgb 12.8 (12.0-16.0) g/dl Hct 39.1 (37.0-47.0) % MCV 85.2 (80.0-100.0) fL MCH 27.9 (25.0-34.0) pg MCHC 32.7 (32.0-36.0) g/dL RDW Std Deviation 42.7 (36.4-46.3) fL RDW Coeff of Barber 13.8 (11.5-14.5) % Plt Count 299 (130-400) K/uL MPV 9.9 (9.4-12.4) fL Immature Gran % (Auto) 0.2 % Neut % (Auto) 55.5 % Lymph % (Auto) 33.3 % [place] % (Auto) 7.4 % Eos % (Auto) 3.0 % Baso % (Auto) 0.6 % Neut # (Auto) 4.98 (1.40-6.50) K/uL Lymph # (Auto) 2.98 (1.20-3.40) K/uL [place] # (Auto) 0.66 H (0.11-0.59) K/uL Eos # (Auto) 0.27 (0.00-0.50) K/uL Baso # (Auto) 0.05 (0.00-0.20) K/uL Immature Gran # (Auto) 0.02 (0.01-0.20) K/uL Sodium 139 (136-145) mmol/L Potassium 4.1 (3.5-5.1) mmol/L Chloride 105 (98-107) mmol/L Carbon Dioxide 28 (21-32) mmol/L Anion Gap 6 (3-11) BUN 13 (6-23) mg/dl Creatinine 0.88 (0.6-1.2) mg/dl Est Cr Clr Drug Dosing 108.1 ml/min eGFR 79.02 BUN/Creatinine Ratio 14.8 (10-20) Glucose 100 H (70-99(Fasting)) mg/dl Calcium 8.4 L (8.6-10.3) mg/dl Total Bilirubin 0.3 (0.2-1.0) mg/dl AST 20 (13-39) U/L ALT 22 (7-52) U/L Alkaline Phosphatase 81 (34-104) U/L Total Protein 6.6 (6.0-8.3) gm/dl Albumin 3.7 (3.4-5.0) gm/dl Globulin 2.9 (2.5-4.0) gm/dl Albumin/Globulin Ratio 1.3 (0.9-2) Administered Medications Ascorbic Acid (Ascorbic Acid 500 Mg Tab) 500 mg PO DAILY [facility] Stop: 10/23/24 11:14 Last Admin: 09/23/24 11:40 Dose: 500 mg Documented By: TOMAS Cyclobenzaprine HCl (Cyclobenzaprine Hcl 10 Mg Tab) 10 mg PO TID PRN PRN Reason: muscle spasm Stop: 10/23/24 08:15 Last Admin: 09/23/24 13:08 Dose: 10 mg Documented By: XIMENA Hydromorphone HCl (Hydromorphone Inj 1 Mg/Ml Syringe) 1 mg IV Q4 PRN PRN Reason: Severe Pain (Scale 7, 8, 9,10) Stop: 10/07/24 18:04 Last Admin: 09/23/24 18:28 Dose: 1 mg Documented By: XIMENA Sodium Chloride (Nss) 1,000 mls @ 125 mls/hr IV .Q8H [facility] Stop: 09/26/24 02:59 Last Admin: 09/23/24 20:09 Dose: 125 mls/hr Documented By: Infusion: 09/23/24 19:39 Dose: Infused Documented By: Admin: 09/23/24 11:39 Dose: 125 mls/hr Documented By: Infusion: 09/23/24 11:14 Dose: Infused Documented By: Admin: 09/23/24 03:12 Dose: 125 mls/hr Documented By: ABHAY Ketorolac Tromethamine (Ketorolac Tromethamine 15 Mg/Ml Vial) 15 mg IV Q6H PRN PRN Reason: Pain Stop: 09/28/24 08:19 Last Admin: 09/23/24 13:08 Dose: 15 mg Documented By: XIMENA Levothyroxine Sodium (Levothyroxine S[facility] 125 [facility]g Tablet) [facility]: 10/23/24 11:14 Last Admin: 09/23/24 11:40 Dose: 125 mcg Documented By: TOMAS Morphine Sulfate (Morphine Sulfate 4 Mg/Ml 1 Ml Carp\\Vial) 4 mg IV Q6H PRN PRN Reason: Pain Stop: 10/07/24 08:19 Last Admin: 09/23/24 20:49 Dose: 4 mg Documented By: Admin: 09/23/24 14:32 Dose: 4 mg Documented By: XIMENA Pantoprazole Sodium (Pantoprazole 40 Mg Tab) 40 mg PO [facility] Stop: 10/23/24 11:14 Last Admin: 09/23/24 11:39 Dose: 40 mg Documented By: TOMAS Vitamin D (Cholecalciferol 125 Mcg (5,000 Units) Tab) 125 mcg PO [facility] Stop: 10/23/24 11:14 Last Admin: 09/23/24 11:40 Dose: 125 mcg Documented By: TOMAS Discontinued Medications Cyclobenzaprine HCl (Cyclobenzaprine Hcl 10 Mg Tab) 10 mg PO NOW STA Stop: 09/23/24 02:54 Last Admin: 09/23/24 03:12 Dose: 10 mg Documented By: ABHAY Gabapentin (Gabapentin 100 Mg Cap) 100 mg PO NOW STA Stop: 09/23/24 02:54 Last Admin: 09/23/24 03:31 Dose: 100 mg Documented By: ABHAY Acetaminophen (Ofirmev) 1,000 mg in 100 mls @ 400 mls/hr IV NOW STA Stop: 09/23/24 03:07 Last Infusion: 09/23/24 03:31 Dose: Infused Documented By: Admin: 09/23/24 03:12 Dose: 400 mls/hr Documented By: ABHAY Ketorolac Tromethamine (Ketorolac Tromethamine 15 Mg/Ml Vial) 10 mg IV NOW ONE Stop: 09/23/24 05:03 Last Admin: 09/23/24 05:15 Dose: 10 mg Documented By: ABHAY Morphine Sulfate (Morphine Sulfate 4 Mg/Ml 1 Ml Carp\\Vial) 4 mg IV NOW STA Stop: 09/23/24 02:54 Last Admin: 09/23/24 03:12 Dose: 4 mg Documented By: ABHAY Morphine Sulfate (Morphine Sulfate 4 Mg/Ml 1 Ml Carp\\Vial) 4 mg IV NOW STA Stop: 09/23/24 05:06 Last Admin: 09/23/24 05:15 Dose: 4 mg Documented By: ABHAY Morphine Sulfate (Morphine Sulfate 4 Mg/Ml 1 Ml Carp\\Vial) 4 mg IV NOW STA Stop: 09/23/24 07:21 Last Admin: 09/23/24 07:59 Dose: 4 mg Documented By: TOMAS Oxycodone HCl (Oxycodone Hcl Ir 5 Mg Tab (Immediate Release)) 5 mg PO NOW STA Stop: 09/23/24 05:43 Last Admin: 09/23/24 06:36 Dose: 5 mg Documented By: SUMIT Imaging Data Radiologist's Impression: Cervical Spine CT 09/23/24 02:53 EXAM: CT cervical spine wo con CLINICAL HISTORY: left neck pain with LUE paresthesias. TECHNIQUE: CT scan of the cervical spine was performed without the administration of intravenous contrast. Contiguous axial images were obtained from the skull base to the upper thoracic spine. Coronal and sagittal reformatted images were also reviewed. One of the following dose reduction techniques was utilized for this exam. Automated exposure control, adjustment of the mA and/or kV according to patient size, and use of iterative reconstruction. COMPARISON: None. FINDINGS: Vertebrae: Loss of cervical lordosis with straightening of curvature. Grade I minimal anterolisthesis of C5 over C6. Tiny marginal anterior osteophytes at lower cervical levels with uncovertebral hypertrophy noted. Maintained vertebral heights. Intervertebral Discs: C6-C7: Left far lateral and foraminal disc herniation, resulting in moderate narrowing of left lateral recess and neural foramen, compressing traversing and exiting nerve roots, at this level accentuated by facetal arthropathy. It measures approximately 4.5 mm. Small posterior disc herniation at C5-C6 level. Facet Joints: Moderate to severe degenerative changes. Hypertrophic facetal arthropathy at C4-C5 level on right side resulting in mild neural foraminal narrowing. Prevertebral Soft Tissues: The prevertebral soft tissues are normal in thickness without evidence of abnormal fluid collection. Few posterior cervical and occipital region ltmphnodes. IMPRESSION: 1. C6-C7: Left far lateral and foraminal disc herniation, resulting in moderate narrowing of left lateral recess and neural foramen, compressing traversing and exiting nerve roots, at this level accentuated by facetal arthropathy. Recommended MR for better evaluation of discogenic disease. 2. Moderate cervical spondylodegenerative changes, predominantly involving the facetal joints. Electronically signed by Yair Bolden 09-23-2024 04:24 AM Discharge Plan Visit Data Chief Complaint: Neck Injury/Pain Stated Complaint: BACK AND NECK PAIN INTO L ARM ED Provider: Dee Tran Discharge Problem: Neck pain, Paresthesia of left arm, Cervical disc herniation Patient Disposition: Admitted As Inpatient Condition: Fair Discharge Instructions Interventions: ED Discharge Assessment Last Done: 09/23/24 12:36
[2024-09-23 03:36] LABS: Hematocrit (blood only) 39.1 % (37.0-47.0); Hemoglobin 12.8 g/dl (12.0-16.0); Immature Granulocytes # (auto) 0.02 K/uL (0.01-0.20); Immature Granulocytes % (auto) 0.2 %; Mean Corpuscular Hemoglobin 27.9 pg (25.0-34.0); Mean Corpuscular Volume 85.2 fL (80.0-100.0); Platelet Count 299 K/uL (130-400); RDW Standard Deviation 42.7 fL (36.4-46.3); Red Blood Count 4.59 M/uL (4.20-5.40); White Blood Count 8.96 K/ul (4.8-10.8)
[2024-09-23 03:54] LABS: Alanine Aminotransferase 22.0 U/L (7-52); Albumin Globulin Ratio 1.3 (0.9-2); Alkaline Phosphatase 81.0 U/L (34-104); Anion Gap 6.0 (3-11); Bilirubin,Total 0.3 mg/dl (0.2-1.0); Blood Urea Nitrogen 13.0 mg/dl (6-23); Calcium 8.4 mg/dl (8.6-10.3); Carbon Dioxide 28.0 mmol/L (21-32); Chloride 105.0 mmol/L (98-107); Creatinine Clr Calc Pharmacy 108.1 ml/min; Globulin 2.9 gm/dl (2.5-4.0); Glucose 100.0 mg/dl (70-99(Fasting)); Potassium 4.1 mmol/L (3.5-5.1); Sodium 139.0 mmol/L (136-145); Total Protein 6.6 gm/dl (6.0-8.3)
--- NOTE | 2024-09-23 04:25 | CT Scan Report ---
EXAM: CT cervical spine wo con CLINICAL HISTORY: left neck pain with LUE paresthesias. TECHNIQUE: CT scan of the cervical spine was performed without the administration of intravenous contrast. Contiguous axial images were obtained from the skull base to the upper thoracic spine. Coronal and sagittal reformatted images were also reviewed. One of the following dose reduction techniques was utilized for this exam. Automated exposure control, adjustment of the mA and/or kV according to patient size, and use of iterative reconstruction. COMPARISON: None. FINDINGS: Vertebrae: Loss of cervical lordosis with straightening of curvature. Grade I minimal anterolisthesis of C5 over C6. Tiny marginal anterior osteophytes at lower cervical levels with uncovertebral hypertrophy noted. Maintained vertebral heights. Intervertebral Discs: C6-C7: Left far lateral and foraminal disc herniation, resulting in moderate narrowing of left lateral recess and neural foramen, compressing traversing and exiting nerve roots, at this level accentuated by facetal arthropathy. It measures approximately 4.5 mm. Small posterior disc herniation at C5-C6 level. Facet Joints: Moderate to severe degenerative changes. Hypertrophic facetal arthropathy at C4-C5 level on right side resulting in mild neural foraminal narrowing. Prevertebral Soft Tissues: The prevertebral soft tissues are normal in thickness without evidence of abnormal fluid collection. Few posterior cervical and occipital region ltmphnodes. IMPRESSION: 1. C6-C7: Left far lateral and foraminal disc herniation, resulting in moderate narrowing of left lateral recess and neural foramen, compressing traversing and exiting nerve roots, at this level accentuated by facetal arthropathy. Recommended MR for better evaluation of discogenic disease. 2. Moderate cervical spondylodegenerative changes, predominantly involving the facetal joints. Electronically signed by Yair Bolden 09-23-2024 04:24 AM
[2024-09-23] MEDS: KETOROLAC TROMETHAMINE 15 MG/ML VIAL IV ONE (05:15)
[2024-09-23] MEDS ORDERED: CETIRIZINE HCL 10 MG TABLET PO PRN (08:16)
[2024-09-23] MEDS ORDERED: ONDANSETRON INJ 2 MG/ML 2 ML VIAL IV PRN (08:22)
[2024-09-23] MEDS ORDERED: MILK THISTLE PO SCH (09:00)
[2024-09-23] MEDS ORDERED: TURMERIC TURMERIC EXT PEPPER PO SCH (09:00)
[2024-09-23 09:34] LABS: Anion Gap 5.0 (3-11); Blood Urea Nitrogen 12.0 mg/dl (6-23); Calcium 8.3 mg/dl (8.6-10.3); Carbon Dioxide 31.0 mmol/L (21-32); Chloride 103.0 mmol/L (98-107); Creatinine Clr Calc Pharmacy 116.0 ml/min; Glucose 96.0 mg/dl (70-99(Fasting)); Potassium 3.7 mmol/L (3.5-5.1); Sodium 139.0 mmol/L (136-145)
--- NOTE | 2024-09-23 11:15 | Electrocardiogram Report ---
Test Reason : Blood Pressure : */* mmHG Vent. Rate : 54 BPM Atrial Rate : 54 BPM P-R Int : 172 ms QRS Dur : 82 ms QT Int : 474 ms P-R-T Axes : 21 36 73 degrees QTcB Int : 449 ms Sinus bradycardia with sinus arrhythmia Low voltage QRS Cannot rule out Inferior infarct , age undetermined Poor R wave progression, consider anterior IA vs. lead placement vs. LVH Abnormal ECG When compared with ECG of 01-Nov-2022 16:34, No significant change was found Confirmed by Alexandre Powell ([id number]) on 09/23/2024 11:15:08 AM Referred By: REFERRED SELF Confirmed By: Alexandre Powell
--- NOTE | 2024-09-23 11:36 | History & Physical Report ---
Date of Service September 23, 2024 Assessment & Plan (1) Cervical disc herniation: Plan: -CT showing C6-C7: Left far lateral and foraminal disc herniation, resulting in moderate narrowing of left lateral recess and neural foramen, compressing traversing and exiting nerve roots, at this level accentuated by facetal arthropathy. It measures approximately 4.5 mm. -pain control with toradol and morphine -pt refusing steroids -Ortho spine consulted PT/OT (2) Hypothyroidism: Plan: -levothyroxine History of Present Illness Chief Complaint: Neck pain with soreness that radiates down her left arm Primary Care Provider: Rosa Isela Burnett DO Pt is a 54 y/o female with pmh of hypothyroidism who presents with severe neck pain that radiates down her left hand and is associated with numbness. Pt states the symptoms started when her grandson pulled on her neck while he was giving her a hug. In the ER patient had a CT of the c-spine which showed C6-C7: Left far lateral and foraminal disc herniation, resulting in moderate narrowing of left lateral recess and neural foramen, compressing traversing and exiting nerve roots. Pt had intractable back pain and was given morphine and toradol. She is refusing steroids, stating that she has had adverse reactions with them in the past. Allergies Allergy/AdvReac Type Severity Reaction Status Date / Time adalimumab [From Humira] Allergy Severe Unknown Verified 09/22/24 08:43 amoxicillin [From Augmentin] Allergy Severe Unknown Verified 09/22/24 08:43 clavulanic acid Allergy Severe Unknown Verified 09/22/24 08:43 infliximab Allergy Severe Unknown Verified 09/22/24 08:43 mercaptopurine Allergy Severe Unknown Verified 09/22/24 08:43 methotrexate Allergy Severe Unknown Verified 09/22/24 08:43 vedolizumab Allergy Severe Unknown Verified 09/22/24 08:43 BETALACTAMASEIN Allergy Mild Unknown Uncoded 09/22/24 08:43 steriods AdvReac Unknown Uncoded 09/22/24 08:43 Home Medications Medication Instructions Recorded Confirmed Type turmeric 500 mg-black pepper 500 mg PO QAM 01/04/19 09/23/24 History extract 3 mg capsule cholecalciferol (vitamin D3) 5,000 unit PO QAM 03/05/20 09/23/24 History ascorbic acid (vitamin C) 1 tab PO DAILY 05/31/22 09/23/24 History milk thistle 1 cap PO DAILY 05/31/22 09/23/24 History levothyroxine 125 mcg tablet 125 mcg PO DAILY #90 tabs 10/10/23 09/23/24 Rx clotrimazole-betamethasone 1 1 applic topical BID PRN skin 01/29/24 09/23/24 History %-0.05 % topical cream irritation cetirizine 10 mg tablet 10 mg PO DAILY PRN allergy 03/21/24 09/23/24 Rx symptoms #90 tabs meloxicam 15 mg tablet 15 mg PO DAILY PRN pain #30 tabs 09/22/24 09/23/24 Rx triamcinolone acetonide 0.1 % 1 applic topical BID PRN Other 09/22/24 09/23/24 History topical cream cyclobenzaprine 10 mg tablet 0 mg PO TID PRN muscle spasm 09/23/24 09/23/24 History pantoprazole 40 mg tablet,delayed 0 mg PO QAM 09/23/24 09/23/24 History release Past Med/Surg History Problem List (Updated 09/23/24 @ 04:41 by Dee Tran, ) Cervical disc herniation (Acute) Paresthesia of left arm (Acute) Neck pain (Acute) Ventral hernia Pertussis exposure History of uterine cancer 2008 - treated surgically Osteoarthritis Dysesthesia of multiple sites Cervical radiculopathy Palpitation Diastolic dysfunction Hypothyroidism (Chronic) GERD (gastroesophageal reflux disease) Vitamin D deficiency Obstructive sleep apnea Anxiety and depression Ankylosing spondylitis of site in spine Normal c-spine ROM Hypertriglyceridemia Prediabetes Fatty liver Obesity Irritable bowel (Chronic) Ulcerative colitis (Chronic) Medical History 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 Patient has had lingering cough, fatigue. CXR ordered by PCP 07/29/20 WNL, no active disease. Scheduled to have PFTs 09/2020. Hypothyroidism TMJ click Bradycardia Sleep apnea Has not used CPAP machine due to lack of insurance coverage (she reports already having $500 worth of expense for colostomy supplies) Surgical History History of skin graft History of total abdominal hysterectomy and bilateral salpingo-oophorectomy History of cardiac cath Status post colostomy H/O colectomy History of appendectomy History of cholecystectomy (12/2017) Family History Mother PVD (peripheral vascular disease) COPD (chronic obstructive pulmonary disease) Stroke Father Diabetes Brother Coronary heart disease Myocardial infarction Brother Skin cancer Brother Congenital heart disease Other No family history of adverse response to anesthesia Denies family history of Ovarian cancer Prostate cancer Breast cancer Colorectal cancer Social History Smoking Status: Never smoker Tobacco Type: Cigarettes Age Started Using Tobacco: 16; Age Quit Using Tobacco: 28; packs per day: 0.5; Second Hand Exposure: Yes (as a child); Do You Dip or Chew Tobacco: No; Hx Alcohol Use: No Hx Substance Use: No Preferred Language: French Communication Ability: Effective Visual Impairment: Limited Hearing Ability: Normal 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 HENT: headache, congestion, sore throat, swelling. EYES: Negative for discharge/pain or vision changes. RESP: Negative for cough/hemoptysis and shortness of breath. CV: Negative chest pain, difficulty breathing, palpitations. ABD: Negative pain, nausea, vomiting. : Negative increase frequency, dysuria, blood in urine or stool. MUSC: neck pain SKIN: Negative rash, lesions/sores. NEURO: Negative headache, dizziness, weakness. Physical Exam Physical Exam: CONST: Negative for fever, body aches and chills. HENT: Negative for neck pain/stiffness, headache, congestion, sore throat, swelling. EYES: Negative for discharge/pain or vision changes. RESP: Negative for cough/hemoptysis and shortness of breath. CV: Negative chest pain, difficulty breathing, palpitations. ABD: Negative pain, nausea, vomiting. : Negative increase frequency, dysuria, blood in urine or stool. MUSC: Negative for muscle aches, edema. SKIN: Negative rash, lesions/sores. NEURO: Negative headache, dizziness, weakness. Results & Data Results & Data Vital Signs (Past 12 Hours) Vital Signs Temp Pulse Pulse Resp BP BP Pulse Ox 09/23/24 11:00 60 14 123/77 98 09/23/24 09:00 55 L 16 150/80 H 99 09/23/24 08:54 100 09/23/24 07:59 53 L 09/23/24 07:53 63 15 125/75 96 09/23/24 06:00 57 L 14 120/77 94 09/23/24 05:30 61 13 148/79 H 93 09/23/24 05:01 70 15 152/81 H 99 09/23/24 04:31 64 14 155/93 H 97 09/23/24 04:00 68 14 133/84 96 09/23/24 03:17 69 20 184/123 H 99 09/23/24 03:09 64 09/23/24 02:37 37.0 C 73 17 194/105 H 99 O2 Del Method O2 Flow Rate 09/23/24 11:00 Room Air 09/23/24 09:00 Nasal Cannula 2 09/23/24 08:54 Nasal Cannula 2 09/23/24 07:59 09/23/24 07:53 Room Air 09/23/24 06:00 Room Air 09/23/24 05:30 Room Air 09/23/24 05:01 Room Air 09/23/24 04:31 Room Air 09/23/24 04:00 Room Air 09/23/24 03:17 Room Air 09/23/24 03:09 09/23/24 02:37 Room Air PG Care Time/CCT Total # of Minutes Spent Total Time Spent with Patient: Total time spent is greater than 50% in coordination of care (as documented) at patient's floor/unit and/or counseling patient: Coding Level of Care Code 17158 INT INP/OBS CARE 2/55MIN Diagnoses Cervical disc herniation M50.20 Hypothyroidism E03.9
[2024-09-23] MEDS: LEVOTHYROXINE SODIUM 125 MCG TABLET PO SCH (11:40)
[2024-09-23] MEDS: CHOLECALCIFEROL 125 MCG (5,000 UNITS) TAB PO SCH (11:40)
[2024-09-23] MEDS: ASCORBIC ACID 500 MG TAB PO SCH (11:40)
[2024-09-23] MEDS: CYCLOBENZAPRINE HCL 10 MG TAB PO PRN (13:08)
[2024-09-23] MEDS: KETOROLAC TROMETHAMINE 15 MG/ML VIAL IV PRN (13:08)
--- NOTE | 2024-09-23 14:26 | Orthopedic Consultation ---
Date of Service September 23, 2024 Assessment & Plan (1) Cervical disc herniation: * Case/imaging reviewed and discussed with Dr Cortes * Recommend conservative management of cervical disc herniation at this time * Pain control, soft collar, activity modification as needed * Unfortunately unable to take steroids secondary to past reaction * No indication for urgent surgical decompression, ideally will temporize medically via pain control and plan for outpatient procedure as needed * Disposition: TBD * Daily treatment: Physical Therapy/ Occupational Therapy per protocol * Weight bearing status: WBAT * Pain control * Remainder care per primary team * Will continue to follow History of Present Illness Reason for Consultation: . Left arm pain Requesting Physician: . Attending Physician: Yaw Stephens MD Patient is a 54y/o female with neck and left arm pain. PMH including hypothyroidism. Presents to hospital with neck and left arm pain ongoing for approximately 5 days. Per report patient started with mild to moderate neck pain approximately 1 week ago, believes she slept wrong. However approximately 3 days ago her grandson was reaching around her neck and dropped his weight on her causing immediate pain at the base of the neck as well as persistent pain and some numbness radiating from the left shoulder to hand. Presents to ED for workup. Current workup including CT C-spine demonstrating C6/7 disc herniation with moderate stenosis. Admitted to hospital medicine team for pain control. Orthopedics consulted for management recommendations. At time of exam patient sitting in bed, moderate distress secondary to pain, tearful. Endorses moderate pain at the base of the neck at rest that increases with movement of the neck or left arm. Pain radiates from the base of the neck through her shoulder, upper arm, forearm, to her hand. Some subjective numbness at the fingertips, but is able to feel tactile sensation. Denies known cervical spine history of issues. Allergies Allergy/AdvReac Type Severity Reaction Status Date / Time adalimumab [From Humira] Allergy Severe Unknown Verified 09/22/24 08:43 amoxicillin [From Augmentin] Allergy Severe Unknown Verified 09/22/24 08:43 clavulanic acid Allergy Severe Unknown Verified 09/22/24 08:43 infliximab Allergy Severe Unknown Verified 09/22/24 08:43 mercaptopurine Allergy Severe Unknown Verified 09/22/24 08:43 methotrexate Allergy Severe Unknown Verified 09/22/24 08:43 vedolizumab Allergy Severe Unknown Verified 09/22/24 08:43 BETALACTAMASEIN Allergy Mild Unknown Uncoded 09/22/24 08:43 steriods AdvReac Unknown Uncoded 09/22/24 08:43 Home Medications Medication Instructions Recorded Confirmed Type turmeric 500 mg-black pepper 500 mg PO QAM 01/04/19 09/23/24 History extract 3 mg capsule cholecalciferol (vitamin D3) 5,000 unit PO QAM 03/05/20 09/23/24 History ascorbic acid (vitamin C) 1 tab PO DAILY 05/31/22 09/23/24 History milk thistle 1 cap PO DAILY 05/31/22 09/23/24 History levothyroxine 125 mcg tablet 125 mcg PO DAILY #90 tabs 10/10/23 09/23/24 Rx clotrimazole-betamethasone 1 1 applic topical BID PRN skin 01/29/24 09/23/24 History %-0.05 % topical cream irritation cetirizine 10 mg tablet 10 mg PO DAILY PRN allergy 03/21/24 09/23/24 Rx symptoms #90 tabs meloxicam 15 mg tablet 15 mg PO DAILY PRN pain #30 tabs 09/22/24 09/23/24 Rx triamcinolone acetonide 0.1 % 1 applic topical BID PRN Other 09/22/24 09/23/24 History topical cream cyclobenzaprine 10 mg tablet 0 mg PO TID PRN muscle spasm 09/23/24 09/23/24 History pantoprazole 40 mg tablet,delayed 0 mg PO QAM 09/23/24 09/23/24 History release Past Med/Surg History Problem List (Updated 09/23/24 @ 04:41 by Dee Tran DO) Cervical disc herniation (Acute) Paresthesia of left arm (Acute) Neck pain (Acute) Ventral hernia Pertussis exposure History of uterine cancer 2009 - treated surgically Osteoarthritis Dysesthesia of multiple sites Cervical radiculopathy Palpitation Diastolic dysfunction Hypothyroidism (Chronic) GERD (gastroesophageal reflux disease) Vitamin D deficiency Obstructive sleep apnea Anxiety and depression Ankylosing spondylitis of site in spine Normal c-spine ROM Hypertriglyceridemia Prediabetes Fatty liver Obesity Irritable bowel (Chronic) Ulcerative colitis (Chronic) Medical History Colostomy in place s/p total colectomy for colitis History of ARCADIO-19 05/2020; cough, fatigue, congestion, sob. Patient has had lingering cough, fatigue. CXR ordered by PCP 07/29/20 WNL, no active disease. Scheduled to have PFTs 09/2020. Hypothyroidism TMJ click Bradycardia Sleep apnea Has not used CPAP machine due to lack of insurance coverage (she reports already having $500 worth of expense for colostomy supplies) Surgical History History of skin graft History of total abdominal hysterectomy and bilateral salpingo-oophorectomy History of cardiac cath Status post colostomy H/O colectomy History of appendectomy History of cholecystectomy (12/2017) Family History Mother PVD (peripheral vascular disease) COPD (chronic obstructive pulmonary disease) Stroke Father Diabetes Brother Coronary heart disease Myocardial infarction Brother Skin cancer Brother Congenital heart disease Other No family history of adverse response to anesthesia Denies family history of Ovarian cancer Prostate cancer Breast cancer Colorectal cancer Social History Smoking Status: Never smoker Tobacco Type: Cigarettes Age Started Using Tobacco: 16; Age Quit Using Tobacco: 28; packs per day: 0.5; Second Hand Exposure: Yes (as a child); Do You Dip or Chew Tobacco: No; Hx Alcohol Use: No Hx Substance Use: No Preferred Language: Taiwanese Communication Ability: Effective Visual Impairment: Limited Hearing Ability: Normal Assistant Chief Nursing Officer Required: No Beliefs That Will Affect Care: None marital status: Current Living Situation: Spouse Current Living Situation Comment: spouse, 2 grandchildren (in process of adopting) current occupational status: disabled How many Children do You have: 4 Feels Safe at Home: Yes Childhood Exposure to Second-Hand Smoke: Yes Diet: regular caffeine: No during the past year weight has: remained stable Dental Care, Regularly: No Physical Activity Frequency: Daily Seatbelt Use: always Sunscreen Use: No Assistive Devices: None Review of Systems All systems reviewed & are unremarkable except as noted in HPI & below. Physical Exam . * General: Alert and oriented, no acute distress * Constitutional: well-developed, well-nourished. * Respiratory: Normal respiratory effort, no distress * Gastrointestinal: No tenderness to palpation, no rigidity or guarding. * Skin: No rash or lesion. * Neurologic: Grossly normal * Musculoskeletal: Cervical spine region without obvious deformity or overlying skin changes. Nonspecific tenderness of the base of the neck, left trapezius and paraspinal muscles, lateral shoulder region. Otherwise diffuse, nonspecific mild tenderness throughout the upper arm, forearm, into the hand. AROM b/l shoulder flexion, elbow flexion/extension, wrist flexion/extension intact. Strength 5/5 bilaterally for all motions. Sensation intact radial/median/ulnar nerve distributions. Brisk capillary refill. Results & Data Results & Data Laboratory Results . Diagnostic Findings . Cervical Spine CT 09/23/24 02:53 EXAM: CT cervical spine wo con CLINICAL HISTORY: left neck pain with LUE paresthesias. TECHNIQUE: CT scan of the cervical spine was performed without the administration of intravenous contrast. Contiguous axial images were obtained from the skull base to the upper thoracic spine. Coronal and sagittal reformatted images were also reviewed. One of the following dose reduction techniques was utilized for this exam. Automated exposure control, adjustment of the mA and/or kV according to patient size, and use of iterative reconstruction. COMPARISON: None. FINDINGS: Vertebrae: Loss of cervical lordosis with straightening of curvature. Grade I minimal anterolisthesis of C5 over C6. Tiny marginal anterior osteophytes at lower cervical levels with uncovertebral hypertrophy noted. Maintained vertebral heights. Intervertebral Discs: C6-C7: Left far lateral and foraminal disc herniation, resulting in moderate narrowing of left lateral recess and neural foramen, compressing traversing and exiting nerve roots, at this level accentuated by facetal arthropathy. It measures approximately 4.5 mm. Small posterior disc herniation at C5-C6 level. Facet Joints: Moderate to severe degenerative changes. Hypertrophic facetal arthropathy at C4-C5 level on right side resulting in mild neural foraminal narrowing. Prevertebral Soft Tissues: The prevertebral soft tissues are normal in thickness without evidence of abnormal fluid collection. Few posterior cervical and occipital region ltmphnodes. IMPRESSION: 1. C6-C7: Left far lateral and foraminal disc herniation, resulting in moderate narrowing of left lateral recess and neural foramen, compressing traversing and exiting nerve roots, at this level accentuated by facetal arthropathy. Recommended MR for better evaluation of discogenic disease. 2. Moderate cervical spondylodegenerative changes, predominantly involving the facetal joints. Electronically signed by Yair Bolden 09-23-2024 04:24 AM PG Care Time/CCT Total # of Minutes Spent Total Time Spent with Patient: Total time spent is greater than 50% in coordination of care (as documented) at patient's floor/unit and/or counseling patient: [place] [address] IN/OBS CONSULT LVL 3,45M Patient Type New History Problem Focused Exam Problem Focused Medical Decision Making Straight Forward Diagnoses Cervical disc herniation M50.20 Time Spent (min) 15
[2024-09-23] MEDS: MoRPHine SULFATE 4 MG/ML 1 ML CARP\\VIAL IV PRN (14:32)
[2024-09-23] MEDS: HYDROmorphone INJ 1 MG/ML SYRINGE IV PRN (18:28)
[2024-09-24] MEDS: MELOXICAM 7.5 MG TAB PO PRN (02:17)
[2024-09-24] MEDS: ACETAMINOPHEN 325 MG TAB PO PRN (03:18)
--- NOTE | 2024-09-24 09:14 | Orthopedic Progress Note ---
Date of Service September 24, 2024 Assessment & Plan (1) Cervical disc herniation: * Case/imaging reviewed and discussed with Dr Cortes * Recommend conservative management of cervical disc herniation at this time * Pain control, soft collar, activity modification as needed * Recommend pain management evaluation, patient would like to trial all nonoperative options before pursuing surgery * Unfortunately unable to take steroids secondary to past reaction * No indication for urgent surgical decompression, ideally will temporize medically via pain control and plan for outpatient procedure as needed * Disposition: TBD * Daily treatment: Physical Therapy/ Occupational Therapy per protocol * Weight bearing status: WBAT * Pain control * Remainder care per primary team * Will continue to follow Subjective .Active Problems: C6/7 disc herniation 54 y/o female with C6/7 disc herniation, left upper extremity pain and radiculopathy. Notes improvement overnight with pain medicines. Improving function. Denies fever/chills, chest pain/SOB, nausea/vomiting. Otherwise no complaints. Review of Systems All systems reviewed & are unremarkable except as noted in HPI & below. Physical Exam * General: Alert and oriented, no acute distress * Constitutional: well-developed, well-nourished. * Respiratory: Normal respiratory effort, no distress * Gastrointestinal: No tenderness to palpation, no rigidity or guarding. * Skin: No rash or lesion. * Neurologic: Grossly normal * Musculoskeletal: Cervical spine region without obvious deformity or overlying skin changes. Nonspecific tenderness of the base of the neck, left trapezius and paraspinal muscles, lateral shoulder region. Otherwise diffuse, nonspecific mild tenderness throughout the upper arm, forearm, into the hand. AROM b/l shoulder flexion, elbow flexion/extension, wrist flexion/extension intact. Strength 5/5 bilaterally for all motions. Sensation intact radial/median/ulnar nerve distributions. Brisk capillary refill. Results & Data Results & Data Laboratory Results . Diagnostic Findings . PG Care Time/CCT Total # of Minutes Spent Total Time Spent with Patient: Total time spent is greater than 50% in coordination of care (as documented) at patient's floor/unit and/or counseling patient: Coding [place] [address] SUB INP/OBS CARE 1/25MIN Patient Type Established History Problem Focused Exam Problem Focused Medical Decision Making Straight Forward Diagnoses Cervical disc herniation M50.20
--- NOTE | 2024-09-24 10:48 | Hospitalist Progress Note ---
Date of Service September 24, 2024 Assessment & Plan (1) Cervical disc herniation: Plan: CT showing C6-C7: Left far lateral and foraminal disc herniation, resulting in moderate narrowing of left lateral recess and neural foramen, compressing traversing and exiting nerve roots, at this level accentuated by facetal arthropathy. It measures approximately 4.5 mm. -pain control with toradol and morphine -pt refusing steroids -Ortho spine consult appreciated -neck collar -PT/OT (2) Hypothyroidism: Plan: -levothyroxine Admission and Anticipated Discharge Date Admission Date: September 23, 2024 Subjective Pt still complaining of neck pain, had difficulty sleeping, requesting CPAP. Review of Systems Review of Systems: CONST: Negative for fever, body aches and chills. HENT: headache, congestion, sore throat, swelling. EYES: Negative for discharge/pain or vision changes. RESP: Negative for cough/hemoptysis and shortness of breath. CV: Negative chest pain, difficulty breathing, palpitations. ABD: Negative pain, nausea, vomiting. : Negative increase frequency, dysuria, blood in urine or stool. MUSC: neck pain SKIN: Negative rash, lesions/sores. NEURO: Negative headache, dizziness, weakness. Physical Exam Physical Exam: CONST: Negative for fever, body aches and chills. HENT: Negative for neck pain/stiffness, headache, congestion, sore throat, swelling. EYES: Negative for discharge/pain or vision changes. RESP: Negative for cough/hemoptysis and shortness of breath. CV: Negative chest pain, difficulty breathing, palpitations. ABD: Negative pain, nausea, vomiting. : Negative increase frequency, dysuria, blood in urine or stool. MUSC: Negative for muscle aches, edema. SKIN: Negative rash, lesions/sores. NEURO: Negative headache, dizziness, weakness. Results & Data Results & Data Vital Signs (Past 12 Hours) Vital Signs Temp Pulse Pulse Resp BP BP Pulse Ox 09/24/24 10:13 69 17 97 09/24/24 08:15 09/24/24 07:24 36.7 C 64 16 149/83 H 100 09/23/24 23:21 36.6 C 72 16 139/85 100 O2 Del Method O2 Flow Rate 09/24/24 10:13 09/24/24 08:15 Nasal Cannula, CPAP 2 09/24/24 07:24 Nasal Cannula 2.5 09/23/24 23:21 Nasal Cannula 4 PG Care Time/CCT Total # of Minutes Spent Total Time Spent with Patient: Total time spent is greater than 50% in coordination of care (as documented) at patient's floor/unit and/or counseling patient: Coding Level of Care Code 54608 SUB INP/OBS CARE 2/35MIN Diagnoses Cervical disc herniation M50.20 Hypothyroidism E03.9
--- NOTE | 2024-09-24 12:39 | Pain Management Consultation ---
Date of Consultation September 24, 2024 Assessment & Plan (1) Paresthesia of left arm: (2) Cervical disc herniation: (3) Cervical radiculopathy: Plan 1. Patient most likely would benefit from C7-T1 interlaminar epidural steroid injection and/or trigger point injections. However she reports that she has severe allergy to steroids requiring cardiac monitoring. She states that she is bradycardic down to the 20s with any steroid injection and has to be admitted to the ICU. This makes her ineligible for any procedures that our office can provide at this time. 2. Recommend allergy referral as an outpatient to verify steroid allergies and recommendations moving forward 3. Recommend continue physical therapy as an outpatient for mobility, strengthening, range of motion 4. Continue muscle relaxants on discharge. We also recommend alternating heat and ice. Would also consider Lidoderm patch. 5. Will do a trial of gabapentin starting at 100 mg 3 times daily and increase to 300 mg 3 times daily as tolerated 6. Recommend MRI of the cervical spine as this will be required for any cervical injections moving forward Thank you for including us in the care of this patient. The pain management clinic will sign off at this time. Please call with any questions. Case discussed with Dr. Durham History of Present Illness Reason for Consultation: Radicular neck pain Attending Physician: Yaw Stephens MD History of Present Illness Attending: Dr. Durham Ms. Emmanuel is a 54-year-old female that presents for acute neck pain. She reports that she developed mild neck pain while sleeping and then she was picking up her grandson who dropped his weight on her neck and shoulder caus ing severe pain 5 days ago. She reports the pain is constant and she has a stabbing feeling into her shoulder with numbness and tingling radiating into her left hand. Patient reports an allergy to steroids which causes severe bradycardia resulting in ICU admission. Patient was started on cyclobenzaprine, Dilaudid, ketorolac meloxicam which has provided some relief to the point where she can now turn her head with full rotation and touch her chin to her chest. She still has difficulty with extension when looking up. Pain is aggravated by use, prolonged standing, walking. She reports her pain is improved since admission. Patient states that the pain is restricted to her left arm. She denies any perceived weakness or dropping of items. She has no loss of dexterity. She rates pain at worst 9/10 and at best 5/10. Patient was seen by orthospine who suggested conservative treatment CT cervical spine 09/23/2024 No previous interventions prior to hospitalization Patient denies any dysphagia or difficulty with mastication. Notes facial droop. No head droop. No other neurological focal deficits. Patient denies malignancy. No history of unusual bleeding or bruising. No other constitutional complaints. Allergies Allergy/AdvReac Type Severity Reaction Status Date / Time adalimumab [From Humira] Allergy Severe Unknown Verified 09/22/24 08:43 amoxicillin [From Augmentin] Allergy Severe Unknown Verified 09/22/24 08:43 clavulanic acid Allergy Severe Unknown Verified 09/22/24 08:43 infliximab Allergy Severe Unknown Verified 09/22/24 08:43 mercaptopurine Allergy Severe Unknown Verified 09/22/24 08:43 methotrexate Allergy Severe Unknown Verified 09/22/24 08:43 vedolizumab Allergy Severe Unknown Verified 09/22/24 08:43 BETALACTAMASEIN Allergy Mild Unknown Uncoded 09/22/24 08:43 steriods AdvReac Severe Unknown Uncoded 09/24/24 11:52 Home Medications Medication Instructions Recorded Confirmed Type turmeric 500 mg-black pepper 500 mg PO QAM 01/04/19 09/23/24 History extract 3 mg capsule cholecalciferol (vitamin D3) 5,000 unit PO QAM 03/05/20 09/23/24 History ascorbic acid (vitamin C) 1 tab PO DAILY 05/31/22 09/23/24 History milk thistle 1 cap PO DAILY 05/31/22 09/23/24 History levothyroxine 125 mcg tablet 125 mcg PO DAILY #90 tabs 10/10/23 09/23/24 Rx clotrimazole-betamethasone 1 1 applic topical BID PRN skin 01/29/24 09/23/24 History %-0.05 % topical cream irritation cetirizine 10 mg tablet 10 mg PO DAILY PRN allergy 03/21/24 09/23/24 Rx symptoms #90 tabs meloxicam 15 mg tablet 15 mg PO DAILY PRN pain #30 tabs 09/22/24 09/23/24 Rx triamcinolone acetonide 0.1 % 1 applic topical BID PRN Other 09/22/24 09/23/24 History topical cream cyclobenzaprine 10 mg tablet 0 mg PO TID PRN muscle spasm 09/23/24 09/23/24 History pantoprazole 40 mg tablet,delayed 0 mg PO QAM 09/23/24 09/23/24 History release Pain History Chief Complaint Chief Complaint: Cervical radiculitis Patient History Medical History 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 Patient has had lingering cough, fatigue. CXR ordered by PCP 07/29/20 WNL, no active disease. Scheduled to have PFTs 09/2020. Hypothyroidism TMJ click Bradycardia Sleep apnea Has not used CPAP machine due to lack of insurance coverage (she reports already having $500 worth of expense for colostomy supplies) Surgical History History of skin graft History of total abdominal hysterectomy and bilateral salpingo-oophorectomy History of cardiac cath Status post colostomy H/O colectomy History of appendectomy History of cholecystectomy (12/2017) Family History Mother PVD (peripheral vascular disease) COPD (chronic obstructive pulmonary disease) Stroke Father Diabetes Brother Coronary heart disease Myocardial infarction Brother Skin cancer Brother Congenital heart disease Other No family history of adverse response to anesthesia Denies family history of Ovarian cancer Prostate cancer Breast cancer Colorectal cancer Social History Smoking Status: Never smoker Tobacco Type: Cigarettes Age Started Using Tobacco: 16; Age Quit Using Tobacco: 28; packs per day: 0.5; Second Hand Exposure: Yes (as a child); Do You Dip or Chew Tobacco: No; Hx Alcohol Use: No Hx Substance Use: No Preferred Language: Honduran Communication Ability: Effective Visual Impairment: Limited Hearing Ability: Normal Director Orange Required: No Beliefs That Will Affect Care: None marital status: Current Living Situation: Spouse Current Living Situation Comment: spouse, 2 grandchildren (in process of adopting) current occupational status: disabled How many Children do You have: 4 Feels Safe at Home: Yes Childhood Exposure to Second-Hand Smoke: Yes Diet: regular caffeine: No during the past year weight has: remained stable Dental Care, Regularly: No Physical Activity Frequency: Daily Seatbelt Use: always Sunscreen Use: No Assistive Devices: None Physical Exam Physical Exam: GENERAL: Speech and cognition is intact. Mood and affect is depressed. Patient is tearful. Does not appear in acute distress secondary to pain. NECK: Full flexion, extension, lateral rotation bilaterally, head-shoulder ROM without restriction although patient states that hyperextension results in increased pain and paresthesias in left arm to fingers. Spurling maneuver negative bilaterally. Positive muscle spasm / trigger points noted in left neck musculature and left trapezius. No facet tenderness to provocative testing. UPPER EXTREMITIES: Upper extremity strength is 5/5 bilaterally. Bilateral sensation equal bilaterally without allodynia, dysesthesia, or hyperpathia. +2 bilateral radial pulse. NEURO: Cranial nerves are grossly intact; no focal deficits noted; AAO x 3. Biceps Reflex L +2 R +2 Brachioradialis L +2 R +2 Results (Pain Clinic) Diagnostic Review CT Findings: CT Scan Report Patient: BJORN EMMANUEL Admit Date: 09/23/24 MR#: [id number] Address1: [address] [place], [place] [address]Hussain BUSTAMANTE Acct ID:[id number] Address2: Date: 1970 [facility] Zip: [place] [address] Age: 54 Location: ED Sex: F Room/Bed: Att Phy: Diagnosis: BACK AND NECK PAIN INTO L ARM Jennifer Phy: Rosa Isela Burnett DO Service Date: 09/23/24 [facility] Phy: Interpreting Phy: [facility] Bolden [facility] Phy: Ordering Phy: Dee Tran DO cc: ~ EXAM: CT cervical spine wo con CLINICAL HISTORY: left neck pain with LUE paresthesias. TECHNIQUE: CT scan of the cervical spine was performed without the administration of intravenous contrast. Contiguous axial images were obtained from the skull base to the upper thoracic spine. Coronal and sagittal reformatted images were also reviewed. One of the following dose reduction techniques was utilized for this exam. Automated exposure control, adjustment of the mA and/or kV according to patient size, and use of iterative reconstruction. COMPARISON: None. FINDINGS: Vertebrae: Loss of cervical lordosis with straightening of curvature. Grade I minimal anterolisthesis of C5 over C6. Tiny marginal anterior osteophytes at lower cervical levels with uncovertebral hypertrophy noted. Maintained vertebral heights. Intervertebral Discs: C6-C7: Left far lateral and foraminal disc herniation, resulting in moderate narrowing of left lateral recess and neural foramen, compressing traversing and exiting nerve roots, at this level accentuated by facetal arthropathy. It measures approximately 4.5 mm. Small posterior disc herniation at C5-C6 level. Facet Joints: Moderate to severe degenerative changes. Hypertrophic facetal arthropathy at C4-C5 level on right side resulting in mild neural foraminal narrowing. Prevertebral Soft Tissues: The prevertebral soft tissues are normal in thickness without evidence of abnormal fluid collection. Few posterior cervical and occipital region ltmphnodes. IMPRESSION: 1. C6-C7: Left far lateral and foraminal disc herniation, resulting in moderate narrowing of left lateral recess and neural foramen, compressing traversing and exiting nerve roots, at this level accentuated by facetal arthropathy. Recommended MR for better evaluation of discogenic disease. 2. Moderate cervical spondylodegenerative changes, predominantly involving the facetal joints. Electronically signed by Yair Bolden 09-23-2024 04:24 AM Previous Records Review Previous Records: personally reviewed by me
[2024-09-25] MEDS: GABAPENTIN 100 MG CAP PO SCH (08:48)
[2024-09-25] MEDS: LIDOCAINE 5% 1 PATCH TD SCH (08:49)
--- NOTE | 2024-09-25 10:04 | Hospitalist Progress Note ---
Date of Service September 25, 2024 Assessment & Plan (1) Cervical disc herniation: Plan: CT showing C6-C7: Left far lateral and foraminal disc herniation, resulting in moderate narrowing of left lateral recess and neural foramen, compressing traversing and exiting nerve roots, at this level accentuated by facetal arthropathy. It measures approximately 4.5 mm. -pain control with toradol and morphine -pt refusing steroids -Ortho spine consult appreciated -neck collar -PT/OT -pain management consult appreciated -MRI c-spine ordered -lidocaine patch -gabapentin (2) Hypothyroidism: Plan: -levothyroxine Admission and Anticipated Discharge Date Admission Date: September 23, 2024 Subjective Pt still complaining of severe neck pain, requiring IV pain medication. Review of Systems Review of Systems: CONST: Negative for fever, body aches and chills. HENT: headache, congestion, sore throat, swelling. EYES: Negative for discharge/pain or vision changes. RESP: Negative for cough/hemoptysis and shortness of breath. CV: Negative chest pain, difficulty breathing, palpitations. ABD: Negative pain, nausea, vomiting. : Negative increase frequency, dysuria, blood in urine or stool. MUSC: neck pain SKIN: Negative rash, lesions/sores. NEURO: Negative headache, dizziness, weakness. Physical Exam Physical Exam: CONST: Negative for fever, body aches and chills. HENT: Negative for neck pain/stiffness, headache, congestion, sore throat, swelling. EYES: Negative for discharge/pain or vision changes. RESP: Negative for cough/hemoptysis and shortness of breath. CV: Negative chest pain, difficulty breathing, palpitations. ABD: Negative pain, nausea, vomiting. : Negative increase frequency, dysuria, blood in urine or stool. MUSC: Negative for muscle aches, edema. SKIN: Negative rash, lesions/sores. NEURO: Negative headache, dizziness, weakness. Results & Data Results & Data Vital Signs (Past 12 Hours) Vital Signs Temp Pulse Pulse Resp BP Pulse Ox O2 Del Method 09/25/24 08:05 36.5 C 70 18 155/85 H 97 Room Air 09/25/24 02:10 71 14 92 09/24/24 23:19 36.4 C L 80 18 147/77 H 97 Room Air, CPAP PG Care Time/CCT Total # of Minutes Spent Total Time Spent with Patient: Total time spent is greater than 50% in coordination of care (as documented) at patient's floor/unit and/or counseling patient: Coding Level of Care Code 63399 SUB INP/OBS CARE 2MIN Diagnoses Cervical disc herniation M50.20 Hypothyroidism E03.9
--- NOTE | 2024-09-25 10:45 | Magnetic Resonance Report ---
MR cervical spine wo con HISTORY: 54 years-old Female disc herniation chronic neck pain COMPARISON: CT cervical spine 09/23/2024, MRI cervical spine 05/17/2021 TECHNIQUE: Multiplanar multisequence MRI of the cervical spine was obtained without IV contrast FINDINGS: Motion degraded exam, limiting evaluation of the cervical spinal cord. The imaged posterior fossa str uctures appear unremarkable. Partially empty sella. No acute fracture, subluxation, or endplate erosi on. Minimal marrow edema involves the superior endplate of C7 and also a few of the bilateral facets, likely on a degenerative basis. No epidural fluid collections. Addition, there are a few scattered s mall Tarlov cysts noted within the cervical spine neural foramen. C2-C3: Uncovertebral hypertrophy with odrc-wc-mgtqobzu facet arthrosis with small posterior annular d isc bulge and probable central disc protrusion, slightly worsened from prior. No central canal or oracio ral foraminal narrowing. C3-C4: Uncovertebral hypertrophy with moderate facet arthrosis. No central canal narrowing. Mild bila teral neural foraminal stenosis. C4-C5: Uncovertebral hypertrophy with mcod-ze-fxtdeigl facet arthrosis. Central canal and right neuro foramen are patent. Mild left neural foraminal narrowing. C5-C6: Mild intervertebral disc space narrowing with uncovertebral atrophy and small posterior annula r disc bulge with lgkd-le-twdchgsj facet arthrosis. No central canal or neural foraminal narrowing. F indings have mildly worsened from prior MRI. C6-C7: Mild intervertebral disc space narrowing redemonstrated with uncovertebral hypertrophy and cir cumferential annular disc bulge/disc osteophyte complex, eccentric to the left lateral recess and lef t neural foramen. Mild facet arthrosis. Minimal central canal stenosis with AP dimension of the theca l sac measuring 8 mm. Nqia-ap-frqubrlm left neural foraminal narrowing. The right neural foramen is p atent. Findings are similar to prior MRI. C7-T1: Mild facet arthrosis. No central canal or neural foraminal narrowing. IMPRESSION: 1. Discogenic degeneration at C6-C7 is generally unchanged from the 05/17/2021 MRI cervical spine. 2. No acute fracture or bone marrow edema. 3. No high-grade central canal or neural foraminal narrowing. ACT 112: Negative or not required by law. The above report was generated using voice recognition software. It may contain grammatical, syntax o r spelling errors. Electronically signed by: Awais Odell M.D. 09/25/2024 10:43 AM
[2024-09-25] MEDS: REMOVE LIDODERM PATCH SCH (20:44)
[2024-09-26 02:17] VITALS: RESP 16; O2SAT 95
[2024-09-26] MEDS: TRIAMCINOLONE ACET 0.1% CR 15 GM TUBE TOP PRN (03:13)
[2024-09-26 07:25] VITALS: BP 142/85; PULSE 69; TEMP 98.2
--- NOTE | 2024-09-26 11:10 | Discharge Summary ---
Discharge Summary Date of Service September 26, 2024 Principal Dx & Hospital Course #1 = Principal Diagnosis (1) Cervical disc herniation: CT showing C6-C7: Left far lateral and foraminal disc herniation, resulting in moderate narrowing of left lateral recess and neural foramen, compressing traversing and exiting nerve roots, at this level accentuated by facetal arthropathy. It measures approximately 4.5 mm. -pain control with toradol and morphine -pt refusing steroids -Ortho spine consult appreciated -neck collar -PT/OT -pain management consult appreciated -MRI c-spine shows disc bulge, no herniation -lidocaine patch -gabapentin -d/c home with tramadol (2) Hypothyroidism: -levothyroxine Admission HPI Per Admitting Provider Pt is a 54 y/o female with pmh of hypothyroidism who presents with severe neck pain that radiates down her left hand and is associated with numbness. Pt states the symptoms started when her grandson pulled on her neck while he was giving her a hug. In the ER patient had a CT of the c-spine which showed C6-C7: Left far lateral and foraminal disc herniation, resulting in moderate narrowing of left lateral recess and neural foramen, compressing traversing and exiting nerve roots. Pt had intractable back pain and was given morphine and toradol. She is refusing steroids, stating that she has had adverse reactions with them in the past. Discharge Exam CONST: Negative for fever, body aches and chills. HENT: Negative for neck pain/stiffness, headache, congestion, sore throat, swelling. EYES: Negative for discharge/pain or vision changes. RESP: Negative for cough/hemoptysis and shortness of breath. CV: Negative chest pain, difficulty breathing, palpitations. ABD: Negative pain, nausea, vomiting. : Negative increase frequency, dysuria, blood in urine or stool. MUSC: Negative for muscle aches, edema. SKIN: Negative rash, lesions/sores. NEURO: Negative headache, dizziness, weakness. Discharge Plan Discharge Items Patient Disposition: Home - Self-Care Reason For Visit: C-SPINE DISC HERNIATION Discharge Diagnosis: c-spine disc buldge Condition on Discharge: Fair Activity: Resume your previous activity Non-emergency contact: Primary Care Provider Call non-emergency contact if: you have any medication questions Follow-up/Referrals: Rosa Isela Burnett DO [Primary Care Provider] - Diet: Regular Addtl Attending Provider Instructions: Follow up with PMD in 1 week Pending Studies at Discharge: No Stand-Alone Forms: My [facility] Begun, Smoking Cessation Medications and DC Order Prescriptions: New lidocaine 5 % Adhesive Patch,Medicated 1 patch transdermal QAM Qty: 12 0RF gabapentin 100 mg Capsule 100 mg PO TID Qty: 60 0RF tramadol 50 mg tablet 50 mg PO Q8H PRN (Reason: pain) Qty: 30 0RF Continued levothyroxine 125 mcg tablet 125 mcg PO DAILY Qty: 90 2RF cetirizine 10 mg tablet 10 mg PO DAILY PRN (Reason: allergy symptoms) Qty: 90 2RF Patient Comments: Last filled 06/02/24 90 day supply cholecalciferol (vitamin D3) 5,000 unit PO QAM Patient Comments: 09/23- otc unable to verify milk thistle 1 cap PO DAILY Patient Comments: 09/23- otc unable to verify ascorbic acid (vitamin C) 1 tab PO DAILY Patient Comments: 09/23- otc unable to verify triamcinolone acetonide 0.1 % cream 1 applic topical BID PRN (Reason: Other) Patient Comments: last filled 02/27/24 30 day supply meloxicam 15 mg tablet 15 mg PO DAILY PRN (Reason: pain) Qty: 30 0RF Patient Comments: 09/23- no fill history unable to verify clotrimazole-betamethasone 1-0.05 % cream 1 applic topical BID PRN (Reason: skin irritation) Patient Comments: last filled 11/29/23 30 day supply Rx Instructions: until area healed turmeric-turmeric ext-pepper 500-3 mg Capsule 500 mg PO QAM Patient Comments: 09/23- otc unable to verify cyclobenzaprine 10 mg tablet 0 mg PO TID PRN (Reason: muscle spasm) Patient Comments: 09/23- no fill history unable to verify pantoprazole 40 mg tablet,delayed release (DR/EC) 0 mg PO QAM Patient Comments: Last filled 05/24 90 day supply #90 Discharge Orders: Discharge Order (Routine); Ordered 09/26/24 Ordered By: Yaw Stephens Admission Data Admit Date/Time: 09/23/24 08:22 Attending Provider: Patricia Childs Admit Provider: Yaw Stephens Primary Care Provider: Rosa Isela Burnett Other Providers: Harvinder Choudhary; Ed Malik; Lencho Cortes; Sera Chun; Isabella Guzman; Awais Espinal; Oskar Pastrana; Miguel Johnson; Awais Chun; Luke Barnhart; Juana Durham; David Schrader; Oskar Greer; Reta Berkowitz Hospital Stay Data Consultations 09/23/24 07:23 ED Decision to Admit Stat 09/23/24 08:16 Consult Orthopedic Spine Surgery Stat 09/24/24 09:14 Consult Pain Management Routine Diagnostic Imagining Performed 09/23/24 02:53 CT cervical spine wo con Stat 09/25/24 07:54 MRI Cervical [MR cervical spine wo con] Routine Pending Results Patient Have Any Pending Studies at Discharge: No Discharge Instructions Given to Patient (Per Discharging Provider) Follow up with PMD in 1 week Total Time Total Time Spent Total Time Spent (In Minutes): 50 Coding Level of Care Code 34509 INP/OBS DISCH >30 MIN Diagnoses Cervical disc herniation M50.20 Hypothyroidism E03.9
== END 2024-09-26 12:50 | disposition home or self-care (01) | DRG 552 ==
LOC: ED 02:31 → SUATTDRO 08:22 → 3E 08:22